=== PATIENT | female | born 1935 | race Caucasian/White ===

== ENCOUNTER → 2016-12-20 | Outpatient (CLI) | payer OTHER, MEDICARE ==
[~2016-12-20] MED LIST: ADULT LOW DOSE81 MG PO; ALDACTONE25 MG PO; ATORVASTATIN CA40 MG PO; AUGMENTIN 875875 MG PO; CARVEDILOL12.5 MG PO; CENTRUM SILVER1 EAC4 PO; CLARITIN10 MG PO; COZAAR 50 MG TA50 M2 PO; FISH OIL 1,0001 EACH PO; FLONASE 0.05%50 MCG NASAL; GLIMEPIRIDE2 MG PO; LANOXIN 0.120.125 M1 PO; LANTUSSOLASTAR SUBQ; LASIX 40 MG TAB40 M2 PO; LEVOTHYROXINE 0.1 MG PO; METFORMIN HCL500 MG PO; NOVOLOG100 UNIT/1 SUBQ; OSTEO BI-FLEX1 EAC1 PO; PAXIL20 MG PO; PLAVIX 75 MG TA75 MG PO; POTASSIUM PO; PRAVACHOL40 MG PO; PROBIOTIC1 EAC1 PO; URSODIOL300 MG PO; VANCOMYCIN100 MG/M1 PO; VENTOLIN HFA 1818 GM INH; VITAMIN D1000 UNI1 PO; VITAMINC500 PO; XARELTO15 MG PO
== END ==
LOC: CAT 12:48
DX: R31.9 Hematuria, unspecified (principal)

== ENCOUNTER 2017-01-31 12:00 | Inpatient (IN) | payer OTHER, MEDICARE ==
--- NOTE | ~2017-01-31 | EKG ---
[place] [address] To [facility] [place] [address] ELECTROCARDIOGRAM REPORT Name: SUNSHINE MCCOY JO Room #: 304-P ADM IN M.R.#: [id number] Admission: 01/31/17 Attend Phys: Rena Toscano Discharge: Date of : 31 Report #: [id number] THIS REPORT FOR: //name// [facility] Test Date: 2017-02-01 Test Time: 16:32:07 Pat Name: SUNSHINE MCCOY Department: Room: 304 P Gender: F Educational Diagnostician: Rena STERN : 1935 Requested By: Yelena Gama Order Number: [id number] MD: Denis Brown Measurements Intervals [place] Rate: 71 P: 76 [place]: 179 QRS: 5 QRSD: 92 T: 77 QT: 412 QTc: 448 Interpretive Statements Sinus rhythm Poor R wave progression Compared to ECG 06/12/2016 07:29:15 Atrial fibrillation no longer present Electronically Signed On 02-03-2017 13:17:15 CDT by Denis Brown [email or web address] <ELECTRONICALLY SIGNED> By: Denis Brown MD, [facility] 02/03/17 1317 163 163 Denis Brown MD, [facility] /EPI
--- NOTE | ~2017-01-31 | S ---
[facility] [place] [address] SURGICAL PATH RPT PROCEDURE Name: KATHLEEN MCCOY Room #: 304-P DIS IN M.R.#: [id number] Admission: 01/31/17 Date of : 31 Discharge: 02/04/17 Report #: [id number] Path Case #: [id number] PATHOLOGY REPORT COLLECTION DATE: 02/03/2017 RECEIVED DATE: 02/04/2017 SUBMITTING PHYS: Dr. Chris Spears OTHER PHYS: Dr. Bin Wilson SPECIMEN(S) RECEIVED: A.Polyp at proximal ascending colon B.Polyp at distal transverse colon C.Polyp at splenic flexure colon x2 D.Polyp at proximal descending colon E.Polyp at mid descending colon F.Polyp at proximal sigmoid colon G.Polyp at mid sigmoid * * * * * * * * * * * * FINAL DIAGNOSIS: A. Polyp, proximal ascending colon polyp, endoscopic biopsy: - Tubular adenoma. - Negative for high grade dysplasia. B. Polyp, distal transverse colon, endoscopic biopsy: - Tubular adenoma. - Negative for high grade dysplasia. C. Polyp, splenic flexure, endoscopic biopsy: - Tubular adenoma. - Negative for high grade dysplasia. D. Polyp, proximal descending colon, endoscopic biopsy: - Tubular adenoma. - Negative for high grade dysplasia. E. Polyp, mid descending colon, endoscopic biopsy: - TUBULOVILLOUS ADENOMA WITH FOCI OF HIGH GRADE DYSPLASIA. - No definite invasion identified. F. Polyp, at proximal sigmoid, endoscopic biopsy: - Tubular adenoma. - Negative for high grade dysplasia. G. Polyp, at mid sigmoid, endoscopic biopsy: - Tubular adenoma. - Negative for high grade dysplasia. COMMENT: Part E only is co-reviewed by Dr. Carlos Lopez who concurs with my diagnosis. (IUV:db; 02/05/2017) [address] [address] SURGICAL PATH RPT PROCEDURE Name: KAMRYN MCCOYTY JO Room #: 304-P [facility] IN M.R.#: [id number] Admission: 01/31/17 Date of : 31 Discharge: 02/04/17 Report #: [id number] Path Case #: [id number] PATHOLOGIST: Bev Gomez M.D. REPORT ELECTRONICALLY SIGNED BY: Bev Gomez M.D. DATE/TIME: 02/05/2017 14:57 * * * * * * * * * * * * GROSS PATHOLOGY: A. Received in formalin labeled "Kathleen Mccoy, proximal ascending colon polyp," is a segment of rowell soft tissue measuring 0.6 cm in maximum dimension. The specimen is submitted entirely in cassette A1. B. Received in formalin labeled "Kathleen Mccoy, polyp distal transverse colon," is a segment of rowell soft tissue measuring 0.6 cm in maximum dimension. The specimen is submitted entirely in cassette B1. C. Received in formalin labeled "Kathleen Mccoy, polyp splenic flexure colon," are four segments of rowell soft tissue measuring 0.8 x 0.8 x 0.2 cm in aggregate dimensions and ranging from 0.4 to 0.7 cm in maximum dimension. The specimen is submitted entirely in cassette C1. D. Received in formalin labeled "Kathleen Mccoy, proximal descending colon," are three segments of rowell soft tissue measuring 1.0 x 0.9 x 0.3 cm in aggregate dimensions and ranging from 0.4 to 0.7 cm in maximum dimension. The specimen is submitted entirely in cassette D1. E. Received in formalin labeled "Kathleen Mccoy, mid descending colon," are nine segments of rowell soft tissue measuring 1.9 x 1.8 x 0.4 cm in aggregate dimensions and ranging from 0.4 to 1.0 cm in maximum dimension. The specimen is submitted entirely in cassette E1 and E2. F. Received in formalin labeled "Kathleen Mccoy, polyp at proximal sigmoid," are three segments of rowell soft tissue measuring 1.2 x 0.8 x 0.3 cm in aggregate dimensions and ranging from 0.5 to 0.8 cm in maximum dimension. The specimen is submitted entirely in cassette F1. G. Received in formalin labeled "Kathleen Mccoy, polyp at mid sigmoid," is a segment of rowell soft tissue measuring 0.7 cm in maximum dimension. The specimen is submitted entirely in cassette G1. (CAA; 02/04/2017) CLINICAL HISTORY: Anemia INITIAL CPT CODE(S): A; 17931 B; 43804 C; 22204 D; 41554 E; 55402 F; 28518 G; [address] [address] SURGICAL PATH RPT PROCEDURE Name: KATHLEEN MCCOY JO Room #: 304-P DIS IN M.R.#: [id number] Admission: 01/31/17 Date of : 31 Discharge: 02/04/17 Report #: [id number] Path Case #: [id number] Professional services performed by [facility] at [facility] [address] [place] [address] Technical services performed by [facility] at [address] [place] [address], [place] [address]. [facility] [address] [place] [address] PHONE: [phone] DIRECTOR: Noel Marsh M.D. * * * END OF REPORT * * *
--- NOTE | ~2017-01-31 | 2DMMODE ---
[facility] [address] [place] [address] 2 D/M-MODE ECHOCARDIOGRAM Name: SUNSHINE MCCOY Room #: 304-P [facility] IN M.R.#: [id number] Admission: 01/31/17 Attend Phys: Bin Marr Discharge: Date of : 31 Date of Service: 02/02/172008 Report #: [id number] THIS REPORT FOR: //name// APPROVED REPORT Study performed: 02/02/2017 13:36:01 EXAM: Comprehensive 2D, Doppler, and color-flow Echocardiogram Patient Location: Bedside Room #: 304 Status: on-call Other Information Study Quality: Good Indications Diabetes Atrial Fibrillation Cardiomyopathy Hypertension/HDD 2D Dimensions LVEF(%): 24.40 (>50%) IVSd: 11.08 (7-11mm) LVOT Diam: 18.00 (18-24mm) LVDd: 43.26 mm PWd: 11.11 (7-11mm) Ascending Ao: 30.87 (22-36mm) LVDs: 38.45 (25-40mm) Aortic Root: 31.76 mm Kaur's LVEF: 24.40 % Volumes Left Atrial Volume (Systole) Single Plane 4CH: 69.99 mL Single Plane 2CH: 66.24 mL LA ESV Index: 43.00 mL/m2 Aortic Valve AoV Peak Lobito.: 1.40 m/s AO Peak Gr.: 8.89 mmHg LVOT Max P.76 mmHg LVOT Max V: 0.83 m/s ROMEO Vmax: 1.48 cm2 Mitral Valve MV Peak Gr.: 37.92 mmHg MV Mean Gr.: 14.73 mmHg E/A Ratio: 1.2 MV Decel. Time: 541.66 ms [facility] [place] [place] [address] 2 D/M-MODE ECHOCARDIOGRAM Name: SUNSHINE MCCOY JO Room #: 304-P [facility] IN .R.#: [id number] Admission: 01/31/17 Attend Phys: Bin Marr Discharge: Date of : 31 Date of Service: 02/02/172008 Report #: [id number] E Max Lobito.: 2.16 m/s MV A Lobito.: 1.73 m/s MV Max Lobito.: 3.06 m/s MV Mean Lobito.: 1.79 m/s MV VTI: 1087.59 mm MV PHT: 157.08 ms MVA (PHT): 1.27 cm2 IVRT: 96.89 ms Pulmonary Valve PV Peak Lobito.: 1.00 m/s PV Peak Gr.: 4.07 mmHg NV End Vmax: 1.28 m/s Tricuspid Valve TR Peak Lobito.: 4.48 m/s RAP Estimate: 10.00 mmHg TR Peak Gr.: 80.39 mmHg PA Pressure: 90.00 mmHg Left Ventricle The left ventricle is normal size. Mid-distal septum and apex are hypokinetic. Borderline concentric left ventricular hypertrophy. Left ventricular systolic function is decreased. mid distal septum ant apex hypokinetic 40 45% Right Ventricle The right ventricle is normal size. The right ventricular systolic function is normal. Atria Left atrium is moderately dilated. Right atrium is mildly dilated. Aortic Valve The Aortic valve is sclerotic. No aortic regurgitation is present. There is no aortic valvular stenosis. Mitral Valve There is mitral annular calcification. Moderate mitral regurgitation. Moderate to severe mitral stenosis. Tricuspid Valve The tricuspid valve is normal in structure. There is no tricuspid valve regurgitation noted. Pulmonic Valve The pulmonary valve is normal in structure. Mild pulmonic [place] [id number] 2 D/M-MODE ECHOCARDIOGRAM Name: SUNSHINE MCCOY JO Room #: 304-P [facility] IN M.R.#: [id number] Admission: 01/31/17 Attend Phys: Bin Marr Discharge: Date of : 31 Date of Service: 02/02/172008 Report #: [id number] regurgitation. Great Vessels The aortic root is normal in size. IVC is dilated and collapses <50% with inspiration. Pericardium There is no pericardial effusion. <Conclusion> 40 45% The right ventricle is normal size. The right ventricular systolic function is normal. Left atrium is moderately dilated. Right atrium is mildly dilated. The Aortic valve is sclerotic. There is no aortic valvular stenosis. Moderate mitral regurgitation. There is no pericardial effusion. There is no tricuspid valve regurgitation noted. The left ventricle is normal size. Left ventricular systolic function is decreased. mid distal septum ant apex hypokinetic <ELECTRONICALLY SIGNED> By: Alton Bright MD, FACC 02/02/172008 08 08 Alton Bright MD, FACC /INF
--- NOTE | ~2017-01-31 | S ---
[facility] [place] [address] SURGICAL PATH RPT PROCEDURE Name: KATHLEEN MCCOY JO Room #: 304-P DIS IN M.R.#: [id number] Admission: 01/31/17 Date of : 31 Discharge: 02/04/17 Report #: [id number] Path Case #: [id number] PATHOLOGY REPORT COLLECTION DATE: 02/02/2017 RECEIVED DATE: 02/04/2017 SUBMITTING PHYS: Dr. Chris Spears OTHER PHYS: Dr. Bin Wilson SPECIMEN(S) RECEIVED: A.Biopsy of gastritis * * * * * * * * * * * * FINAL DIAGNOSIS: Gastric mucosa, gastritis, endoscopic biopsy: - Moderate reactive gastropathy with focal intestinal metaplasia. - Negative for atrophy or dysplasia. - Negative for Helicobacter pylori. (IUV:kp; 02/05/2017) COMMENT: Well-controlled Helicobacter pylori immunohistochemical stain performed on block A1 - Negative. PATHOLOGIST: Bev Gomez M.D. REPORT ELECTRONICALLY SIGNED BY: Bev Gomez M.D. DATE/TIME: 02/05/2017 14:55 * * * * * * * * * * * * GROSS PATHOLOGY: Received in formalin labeled "Kathleen Mccoy, biopsy of gastritis," are four segments of rowell soft tissue measuring 1.0 x 0.9 x 0.2 cm in aggregate dimensions and ranging from 0.5 to 0.6 cm in maximum dimension. The specimen is submitted entirely in cassette A1. (CAA; 02/04/2017) CLINICAL HISTORY: Pre-op diagnosis: Dysphagia, dark stools Post-op diagnosis: Gastritis INITIAL CPT CODE(S): A; 47498, 69774 Professional services performed by [facility] at [facility] [address], [place] [address] [facility] [address] [place] [address] SURGICAL PATH RPT PROCEDURE Name: KATHLEEN MCCOY Room #: 304-P DIS IN M.R.#: [id number] Admission: 01/31/17 Date of : 31 Discharge: 02/04/17 Report #: [id number] Path Case #: [id number] Technical services performed by [facility] at [address] [place] [address], [facility] [[email or web address]] [address] [place] [address]. [facility] [address] [place] [address] PHONE: [phone] DIRECTOR: Noel Marsh M.D. * * * END OF REPORT * * *
[2017-01-31] MEDS ORDERED: OMEPRAZOLE 20 M20 M1 PO (12:17)
[2017-01-31] MEDS ORDERED: PRAVACHOL40 MG PO (12:20)
[2017-01-31] MEDS ORDERED: NOVOLOG100 UNIT/1 SUBQ (12:24)
[2017-01-31] MEDS ORDERED: PROBIOTIC1 EAC1 PO (12:25)
[2017-01-31 15:30] VITALS: BP 122/56
[2017-01-31 20:00] VITALS: BP 115/53
[2017-01-31 20:09] LABS: HEMATOCRIT 22.4 % (37.0-47.0); HEMOGLOBIN 7.4 gm/dL (12.0-15.0); MCH 31.4 pg (26.0-34.0); MCV 95.1 fL (80.0-100.0); PLATELET COUNT 249 thou/uL (150-400); RBC 2.36 mil/uL (4.20-5.00); WBC 8.5 thou/uL (4.0-11.0)
[2017-01-31 20:11] LABS: MANUAL DIFF YES
[2017-01-31 20:28] LABS: ALBUMIN 2.9 g/dL (3.4-5.0); CALCIUM 8.5 mg/dL (8.5-10.1); CREATININE 1.3 mg/dL (0.6-1.0); POTASSIUM 3.8 mmol/L (3.5-5.1); TOTAL BILIRUBIN 0.8 mg/dL (<0.1-1.0); TOTAL PROTEIN 6.5 g/dL (6.4-8.2)
[2017-01-31 20:51] LABS: ABSOLUTE NEUTROPHILS 6.9 thou/uL (1.4-8.2); TOTAL CELL COUNT 100
[2017-01-31 20:52] LABS: ANISOCYTOSIS 1+
[2017-01-31] MEDS ORDERED: FLONASE 0.05%50 MCG NASAL (22:58)
[2017-01-31] MEDS ORDERED: CLARITIN10 MG PO (22:59)
[2017-02-01] VITALS: BP 102/40
[2017-02-01 04:00] VITALS: BP 124/50
[2017-02-01 09:00] VITALS: BP 117/69
[2017-02-01 15:29] LABS: URINE BILIRUBIN NEGATIVE (Negative); URINE BLOOD NEGATIVE (Negative); URINE COLOR YELLOW; URINE GLUCOSE-RANDOM* NEGATIVE (Negative); URINE KETONES NEGATIVE (Negative); URINE LEUKOCYTES-REFLEX 1+ (Negative); URINE PROTEIN (DIPSTICK) NEGATIVE (Negative); URINE SPECIFIC GRAVITY <= 1.005 (1.003-1.035); URINE UROBILINOGEN 0.2 E.U./dl (0.2-1.0)
[2017-02-01 15:39] LABS: SQUAMOUS 0-3 Few /LPF (0-3)
[2017-02-01 15:40] LABS: CASTS None Seen /LPF (None Seen); CRYSTALS None Seen /LPF (None Seen); URINE RBC None Seen /HPF (0-2); URINE WBC-REFLEX 0-5 Rare /HPF (0-5)
[2017-02-01 16:00] VITALS: BP 114/55
[2017-02-01 20:00] VITALS: BP 136/63
[2017-02-02] VITALS (7 sets, daily range): BP systolic 84–114; BP diastolic 42–57
[2017-02-02 11:44] LABS: HEMATOCRIT 20.8 % (37.0-47.0); HEMOGLOBIN 6.8 gm/dL (12.0-15.0); MCH 31.4 pg (26.0-34.0); MCHC 32.9 g/dL (28.0-37.0); MCV 95.4 fL (80.0-100.0); RBC 2.18 mil/uL (4.20-5.00); RDW 20.5 % (10.5-14.5); WBC 7.7 thou/uL (4.0-11.0)
[2017-02-02 11:48] LABS: CALCIUM 8.3 mg/dL (8.5-10.1); CREATININE 1.3 mg/dL (0.6-1.0); POTASSIUM 3.8 mmol/L (3.5-5.1)
[2017-02-03 08:00] VITALS: BP 131/67
[2017-02-03 10:05] LABS: HEMATOCRIT 31.1 % (37.0-47.0)
[2017-02-03 10:11] LABS: HEMOGLOBIN 10.1 gm/dL (12.0-15.0)
[2017-02-03 10:30] VITALS: BP 141/67
[2017-02-03 16:00] VITALS: BP 114/66
[2017-02-03 17:07] LABS: URINE BILIRUBIN NEGATIVE (Negative); URINE BLOOD 3+ (Negative); URINE COLOR YELLOW; URINE GLUCOSE-RANDOM* NEGATIVE (Negative); URINE KETONES NEGATIVE (Negative); URINE LEUKOCYTES-REFLEX 1+ (Negative); URINE PROTEIN (DIPSTICK) TRACE (Negative); URINE SPECIFIC GRAVITY 1.025 (1.003-1.035); URINE UROBILINOGEN 0.2 E.U./dl (0.2-1.0)
[2017-02-03 17:15] LABS: CASTS None Seen /LPF (None Seen); SQUAMOUS 4-10 Moderate /LPF (0-3)
[2017-02-03 17:18] LABS: URINE WBC-REFLEX 0-5 Rare /HPF (0-5)
[2017-02-03 20:30] VITALS: BP 110/58
[2017-02-04 03:30] VITALS: BP 91/57
[2017-02-04 06:32] LABS: HEMATOCRIT 28.3 % (37.0-47.0); HEMOGLOBIN 9.5 gm/dL (12.0-15.0); MCH 30.4 pg (26.0-34.0); MCHC 33.4 g/dL (28.0-37.0); MCV 90.9 fL (80.0-100.0); RBC 3.12 mil/uL (4.20-5.00); RDW 20.4 % (10.5-14.5); WBC 10.4 thou/uL (4.0-11.0)
[2017-02-04 07:28] VITALS: BP 93/53
[2017-02-04] MEDS ORDERED: PACERONE 200 M200 M1 PO (12:34)
[2017-02-04 13:02] VITALS: BP 93/53
[2017-02-04 13:14] VITALS: BP 93/53
== END 2017-02-04 13:58 | disposition home or self-care (01) | DRG 378 ==
LOC: 3N 12:00
PROVIDERS: Internal Medicine; Internal Medicine Geriatric Medicine; Specialist
DX: K92.2 Gastrointestinal hemorrhage, unspecified (principal); E44.1 Mild protein-calorie malnutrition; I10 Essential (primary) hypertension; E78.5 Hyperlipidemia, unspecified; F32.9 Major depressive disorder, single episode, unspecified; E11.9 Type 2 diabetes mellitus without complications; B02.9 Zoster without complications; D64.9 Anemia, unspecified; L50.9 Urticaria, unspecified; I25.10 Atherosclerotic heart disease of native coronary artery without angina pectoris; E03.9 Hypothyroidism, unspecified; I27.2 Other secondary pulmonary hypertension; M19.90 Unspecified osteoarthritis, unspecified site; L29.9 Pruritus, unspecified; I25.5 Ischemic cardiomyopathy; I05.0 Rheumatic mitral stenosis; I48.0 Paroxysmal atrial fibrillation; K63.5 Polyp of colon; Z88.6 Allergy status to analgesic agent; Z88.2 Allergy status to sulfonamides; Z91.041 Radiographic dye allergy status; Z90.710 Acquired absence of both cervix and uterus; Z98.62 Peripheral vascular angioplasty status; I25.2 Old myocardial infarction; Z90.49 Acquired absence of other specified parts of digestive tract; Z79.899 Other long term (current) drug therapy; K74.3 Primary biliary cirrhosis
CPT/HCPCS: 10096; 62110; 62900; 70005

== ENCOUNTER 2017-06-18 18:46 | Emergency (ER) | payer OTHER, MEDICARE ==
[~2017-06-18] VITALS: Ht 160 cm; Wt 77.1 kg
[~2017-06-18 18:46] MED LIST changes: +OMEPRAZOLE 20 M20 M1 PO; +PACERONE 200 M200 M1 PO
[2017-06-18] MEDS ORDERED: OMEPRAZOLE 20 M20 M1 PO (19:49)
== END 2017-06-18 21:18 | disposition home or self-care (01) ==
LOC: ER 18:46
DX: S01.01XA Laceration without foreign body of scalp, initial encounter (principal); M54.5 Low back pain; I10 Essential (primary) hypertension; E78.5 Hyperlipidemia, unspecified; F32.9 Major depressive disorder, single episode, unspecified; E11.9 Type 2 diabetes mellitus without complications; I48.91 Unspecified atrial fibrillation; Z91.041 Radiographic dye allergy status; Z90.710 Acquired absence of both cervix and uterus; Z88.5 Allergy status to narcotic agent; Z88.2 Allergy status to sulfonamides; W01.198A Fall on same level from slipping, tripping and stumbling with subsequent striking against other object, initial encounter; Y93.89 Activity, other specified; Y92.89 Other specified places as the place of occurrence of the external cause; Y99.8 Other external cause status; Z79.4 Long term (current) use of insulin

== ENCOUNTER → 2017-07-31 | Outpatient (CLI) | payer OTHER, MEDICARE ==
[~2017-07-31] MED LIST changes: +ACETAMINOPHEN-1 EAC1 PO; +COZAAR 50 MG TA50 M1 PO; +DEMADEX20 MG PO; +GABAPENTIN 100100 MG PO; +KLOR-CON20 ME1 PO; +TORSEMIDE20 MG PO
== END ==
LOC: CAT 15:03
DX: M48.56XA Collapsed vertebra, not elsewhere classified, lumbar region, initial encounter for fracture (principal); M48.061 Spinal stenosis, lumbar region without neurogenic claudication; M19.071 Primary osteoarthritis, right ankle and foot; M10.071 Idiopathic gout, right ankle and foot; M25.78 Osteophyte, vertebrae; I10 Essential (primary) hypertension; I48.91 Unspecified atrial fibrillation; I11.0 Hypertensive heart disease with heart failure; I50.32 Chronic diastolic (congestive) heart failure; E11.9 Type 2 diabetes mellitus without complications; E11.65 Type 2 diabetes mellitus with hyperglycemia; N17.9 Acute kidney failure, unspecified; I25.10 Atherosclerotic heart disease of native coronary artery without angina pectoris; E03.9 Hypothyroidism, unspecified; J44.9 Chronic obstructive pulmonary disease, unspecified; K57.90 Diverticulosis of intestine, part unspecified, without perforation or abscess without bleeding; I25.5 Ischemic cardiomyopathy

== ENCOUNTER → 2017-08-15 | Outpatient (CLI) | payer OTHER, MEDICARE | LOC: RAD 13:06 | DX: J98.11 Atelectasis (principal) ==

== ENCOUNTER 2017-09-24 12:40 | Inpatient (IN) | payer OTHER, MEDICARE ==
[~2017-09-24] VITALS: Ht 160 cm; Wt 76.2 kg
--- NOTE | ~2017-09-24 | H ---
[facility] [place] [address] HISTORY AND PHYSICAL Name: SUNSHINE MCCOY Room #: 437-P ADM IN M.R.#: [id number] Admission: 09/24/17 Attend Phys: Rena Toscano Discharge: Date of : 33 Report #: [id number] THIS REPORT FOR: //name// CC: Bin Wilson DATE OF SERVICE: 09/24/2017 CHIEF COMPLAINT: Back pain. HISTORY OF PRESENT ILLNESS: The patient is an 82-year-old female admitted from home with back pain. She said over the last several weeks, she has had pain in the middle of the back, which is gradually intensified. It is very difficult for her to get in and out of bed. She denies any recent fall or injury. CT in July confirmed an L1 fracture. An MRI yesterday suggested there has been compression with loss of vertebral height. She is admitted for pain control and consideration of intervention. PAST MEDICAL HISTORY: Coronary artery disease with remote history of stent, history of subarachnoid hemorrhage, diabetes type 2, hypertension, dyslipidemia, primary biliary cirrhosis, hypothyroidism, diverticulosis, history of C. diff colitis in 2016, COPD, and depression. PAST SURGICAL HISTORY: Cholecystectomy. FAMILY HISTORY: Noncontributory. SOCIAL HISTORY: She is and lives with her . No chronic alcohol or tobacco use. ALLERGIES: IV CONTRAST, MORPHINE, she said it caused confusion. MEDICATIONS: Advil, Paxil 20 mg, Colace, Levoxyl 100 mcg, amiodarone 100 mg, Zyrtec, NovoLog 20 units with meals, Lasix 20 mg, Symbicort 2 puffs twice a day, omeprazole 20 mg, Flonase nasal spray. REVIEW OF SYSTEMS: Other than the above denies headache, chest pain, shortness of breath, abdominal pain, nausea, vomiting, constipation, dysuria, syncope. OBJECTIVE: VITAL SIGNS: Per the nursing note. GENERAL: She is awake and alert, sitting on the edge of the bed, appears uncomfortable. HEAD AND NECK: Unremarkable. LUNGS: Clear. HEART: Regular. ABDOMEN: Soft, normoactive bowel sounds. [facility] [address] [place] [address] HISTORY AND PHYSICAL Name: SUNSHINE MCCOY JO Room #: 437-P [facility] IN M.R.#: [id number] Admission: 09/24/17 Attend Phys: Rena Toscaon Discharge: Date of : 33 Report #: [id number] EXTREMITIES: No edema. NEUROLOGIC: She has palpable midline spinal tenderness. Global strength is intact. She was able to stand and walk from the bedside commode with help. ASSESSMENT: 1. L1 vertebral compression fracture. 2. Uncontrolled low back pain. 3. Lumbar spinal stenosis from L3-L5. 4. Diabetes type 2. 5. Coronary artery disease. PLAN: She has failed outpatient treatment has been unable to manage at home due to constant pain. Advil has been ineffective and tramadol caused side effects. She said she has had an INTOLERANCE TO MORPHINE in the past ordered Tylenol with codeine for now and a back brace with physical therapy. May need to consider vertebroplasty. <ELECTRONICALLY SIGNED> By: Melvin Floyd MD 09/25/17 1208 1714 1740 Melvin Floyd MD /nt
--- NOTE | ~2017-09-24 | D ---
[facility] [place] [address] DISCHARGE SUMMARY Name: SUNSHINE MCCOY JO Room #: 437-P [facility] IN M.R.#: [id number] Admission: 09/24/17 Attend Phys: Rena Toscano Discharge: 09/28/17 Date of : 31 Report #: [id number] THIS REPORT FOR: //name// CC: Bin Wilson DATE OF SERVICE: 09/28/2017 FINAL DIAGNOSIS: Acute L1 vertebral compression fracture. PROCEDURES: Vertebroplasty. HOSPITAL COURSE: The patient was admitted with intractable back pain. Previous MRI was obtained, which revealed an acute L1 vertebral compression fracture. Back brace and therapy were ordered, and she was started on Tylenol with codeine for pain as she did not tolerate other narcotics in the past. Interventional Radiology was consulted. Dr. Copeland felt she was amenable to vertebroplasty, and therefore, she underwent the procedure. Her pain was much improved following this. She was participating well with physical therapy, and she was mobile enough to go home and not needing inpatient rehabilitation at this point. PHYSICAL EXAMINATION: GENERAL: On the day of discharge, she was awake and alert with stable vital signs. Reviewed electronically. I spoke to the patient and her at the bedside about the plan. LUNGS: Clear. HEART: Regular. ABDOMEN: Soft, normoactive bowel sounds. EXTREMITIES: No edema. DISPOSITION: To be discharged home. Resume all medications. Diabetic diet, activity as tolerated. She will have a back brace to use when she is out of bed, Tylenol No. 3 for pain. Follow up with Dr. Wilson in 2 weeks. <ELECTRONICALLY SIGNED> By: Melvin Floyd MD 10/01/17 1521 0820 0909 Melvin Floyd MD /nt
--- NOTE | ~2017-09-24 | HC ---
[facility] [place] [address] CONSULTATION Name: SUNSHINE MCCOY JO Room #: 437-P [facility] IN M.R.#: [id number] Admission: 09/24/17 Attend Phys: Rena Toscano Discharge: 09/28/17 Date of : 33 Report #: [id number] THIS REPORT FOR: //name// CC: Bin Wilson DATE OF SERVICE: 09/26/2017 HISTORY OF PRESENT ILLNESS: The patient is an 82-year-old white female with history of back pain. She apparently had a fall back in May and the pain gradually got worse. Initial x-rays were negative, but a followup CT in July showed an L1 compression fracture. Symptoms have gradually worsened and an MRI was obtained, which showed decreased vertebral height. She has developed uncontrolled low back pain. She is having difficulty getting in and out of bed. She has been sleeping in a recliner. She was admitted to [facility] and has been seen by Interventional Radiology and my understanding is she is to undergo a kyphoplasty later on today. She has in the meantime been fitted with a TLSO brace. We are seeing her in rehabilitation medicine consultation. PAST MEDICAL HISTORY: Coronary artery disease with remote history of a stent, history of subarachnoid hemorrhage, diabetes mellitus type 2, hypertension, dyslipidemia, primary biliary cirrhosis, hypothyroidism, diverticulosis, history of C. diff colitis, COPD, and depression. PAST SURGICAL HISTORY: Includes cholecystectomy. FAMILY HISTORY: Noncontributory. SOCIAL HISTORY: , lives with her . No chronic alcohol or tobacco abuse. ALLERGIES: IV CONTRAST AND MORPHINE WHICH APPARENTLY HAS CAUSED HER SOME CONFUSION. MEDICATIONS: Please see the full medication listing. REVIEW OF SYSTEMS: No current complaints of chest pain, shortness of breath, abdominal discomfort. The main complaint is the back pain. It appears the back brace may be helping a little bit. No focal extremity pain complaints. PHYSICAL EXAMINATION: GENERAL: She is a pleasant 82-year-old white female in no obvious distress. VITAL SIGNS: Last recorded temperature is 97.5, pulse 64, respirations 18, blood pressure 126/65. The patient is alert, oriented. HEENT: Appeared to be benign. NEUROLOGIC: Cranial nerves are grossly intact. Facies are symmetric. She is pleasant, alert, somewhat overweight. Functional range of motion of both upper [address] [address] CONSULTATION Name: SUNSHINE MCCOY JO Room #: 437-[facility] IN M.R.#: [id number] Admission: 09/24/17 Attend Phys: Rena Toscano Discharge: 09/28/17 Date of : 31 Report #: [id number] extremities, strength is grade 4 to 4-/5. DTRs are trace to 1. She has the TLSO brace in place. Lower extremities, no focal calf swelling. Functional range of motion, strength is grade 4/5. DTRs are trace to 1. She has had her physical therapy evaluation deferred until she received a TLSO. ASSESSMENT: 1. L1 vertebral compression fracture. 2. Uncontrolled low back pain. 3. Lumbar spinal stenosis L3 through L5. 4. Diabetes mellitus type 2. 5. Coronary artery disease. 6. Exogenous obesity. PLAN: She is to undergo the vertebroplasty later on today. We will have physical therapy involved for evaluation and will also add occupational therapy to see her after the vertebroplasty. We will need to see how she does in therapies and we will be glad to follow along regarding her rehab therapy needs. is hoping that she can return directly home with some home health care. We will need to see how she does post the vertebroplasty. Rehab beds are currently type. We will be glad to follow along with you regarding her rehab therapy needs. <ELECTRONICALLY SIGNED> By: Melvin Kwon MD 10/22/17 1030 1213 0502 Melvin Kwon MD /nt
[~2017-09-24 12:40] MED LIST changes: -ACETAMINOPHEN-1 EAC1 PO; -DEMADEX20 MG PO; -GABAPENTIN 100100 MG PO; -KLOR-CON20 ME1 PO; -TORSEMIDE20 MG PO
[2017-09-24 17:00] VITALS: BP 142/74
[2017-09-24] MEDS ORDERED: LASIX 40 MG TAB40 M2 PO (18:21)
[2017-09-24 18:22] LABS: HEMATOCRIT 36.3 % (37.0-47.0); HEMOGLOBIN 11.9 gm/dL (12.0-15.0); MCH 30.8 pg (26.0-34.0); MCHC 32.7 g/dL (28.0-37.0); MCV 94.1 fL (80.0-100.0); RBC 3.85 mil/uL (4.20-5.00); RDW 19.8 % (10.5-14.5); WBC 11.8 thou/uL (4.0-11.0)
[2017-09-24 18:36] LABS: CALCIUM 9.4 mg/dL (8.5-10.1); CREATININE 1.1 mg/dL (0.6-1.0); POTASSIUM 3.9 mmol/L (3.5-5.1); TOTAL BILIRUBIN 0.6 mg/dL (<0.1-1.0); TOTAL PROTEIN 6.8 g/dL (6.4-8.2)
[2017-09-24 18:37] LABS: PROTIME 10.3 Seconds (9.3-11.4)
[2017-09-25 04:00] VITALS: BP 120/55
[2017-09-25 09:15] VITALS: BP 111/52
[2017-09-25 16:35] VITALS: BP 117/67
[2017-09-25 19:32] VITALS: BP 134/71
[2017-09-26] VITALS (12 sets, daily range): BP systolic 126–153; BP diastolic 65–96
[2017-09-27 03:29] VITALS: BP 119/65
[2017-09-27 08:00] VITALS: BP 127/67
[2017-09-27 16:00] VITALS: BP 111/47
[2017-09-27 19:48] VITALS: BP 129/69
[2017-09-28 03:46] VITALS: BP 121/57
[2017-09-28] MEDS ORDERED: ACETAMINOPHEN-1 EAC1 PO (08:17)
[2017-09-28] MEDS ORDERED: PACERONE 200 M200 M1 PO (08:17)
[2017-09-28 08:46] VITALS: BP 113/63
[2017-09-28 09:06] VITALS: BP 113/63
[2017-09-28 09:53] VITALS: BP 113/63
== END 2017-09-28 09:54 | disposition home or self-care (01) | DRG 516 ==
LOC: MRI 12:40 → 4S 15:39
PROVIDERS: Internal Medicine Geriatric Medicine
PROC: 0QU03JZ Supplement Lumbar Vertebra with Synthetic Substitute, Percutaneous Approach (ICD-10-PCS; principal; 2017-09-28)
PROC: 0QS03ZZ Reposition Lumbar Vertebra, Percutaneous Approach (ICD-10-PCS; principal; 2017-09-28)
DX: M48.56XA Collapsed vertebra, not elsewhere classified, lumbar region, initial encounter for fracture (principal); E44.1 Mild protein-calorie malnutrition; I25.10 Atherosclerotic heart disease of native coronary artery without angina pectoris; E11.9 Type 2 diabetes mellitus without complications; I10 Essential (primary) hypertension; E78.5 Hyperlipidemia, unspecified; K74.60 Unspecified cirrhosis of liver; E03.9 Hypothyroidism, unspecified; M48.061 Spinal stenosis, lumbar region without neurogenic claudication; K57.90 Diverticulosis of intestine, part unspecified, without perforation or abscess without bleeding; E66.09 Other obesity due to excess calories; J44.9 Chronic obstructive pulmonary disease, unspecified; F32.9 Major depressive disorder, single episode, unspecified; Z90.49 Acquired absence of other specified parts of digestive tract; Z88.6 Allergy status to analgesic agent; Z68.29 Body mass index [BMI] 29.0-29.9, adult; Z79.899 Other long term (current) drug therapy; Z88.2 Allergy status to sulfonamides; Z95.5 Presence of coronary angioplasty implant and graft; Z88.8 Allergy status to other drugs, medicaments and biological substances; Z91.041 Radiographic dye allergy status; Z90.710 Acquired absence of both cervix and uterus
CPT/HCPCS: 10102

== ENCOUNTER 2018-05-07 10:57 | Inpatient (IN) | payer OTHER, MEDICARE ==
[~2018-05-07] VITALS: Ht 160 cm; Wt 76.9 kg
--- NOTE | ~2018-05-07 | EKG ---
[place] [address] [facility] [place] [address] ELECTROCARDIOGRAM REPORT Name: SUNSHINE MCCOY JO Room #: 454-P ADM IN M.R.#: [id number] Admission: 05/07/18 Attend Phys: Rena Toscano Discharge: Date of : 31 Report #: [id number] THIS REPORT FOR: //name// [facility] ED Test Date: 2018-05-07 Test Time: 11:24:10 Pat Name: SUNSHINE MCCOY Department: Room: [facility] Gender: F [employer]: [place] : 1935 Requested By: David Farley Order Number: [id number] MD: Denis Brown Measurements Intervals [place] Rate: 70 P: 69 [place]: 190 QRS: -2 QRSD: 101 T: 67 QT: 470 QTc: 508 Interpretive Statements Sinus rhythm Probable anteroseptal infarct, old Prolonged QT interval Compared to ECG 02/01/2017 16:32:07 Prolonged QT interval now present Electronically Signed On 05-07-2018 17:27:17 CDT by Denis Brown [email or web address] <ELECTRONICALLY SIGNED> By: Denis Brown MD, [facility] 05/07/18 1727 1124 1124 Denis Brown MD, [facility] /EPI
--- NOTE | ~2018-05-07 | D ---
[facility] [place] [address] DISCHARGE SUMMARY Name: SUNSHINE MCCOY Room #: 454-P [facility] IN M.R.#: [id number] Admission: 05/07/18 Attend Phys: Rena Toscano Discharge: 05/09/18 Date of : 31 Report #: [id number] THIS REPORT FOR: //name// CC: Bin Bright DATE OF SERVICE: 05/09/2018 FINAL DIAGNOSES: 1. . Erlid-ud-tdtfljq diastolic congestive heart failure. 2. Diabetes type 2. HOSPITAL COURSE: The patient was admitted with shortness of breath and x-ray and lab work were consistent with congestive heart failure. She received IV diuretics and other home medication. Dr. Bright saw her in consultation who knows her well. She responded to usual treatment. Oxygen was weaned off and she had no other interval complications. She received education from nursing staff along with Cardiology and myself regarding management of her heart failure as an outpatient treatment. PHYSICAL EXAMINATION: On the day of discharge: GENERAL: She was awake and alert. VITAL SIGNS: Stable. LUNGS: Clear. HEART: Regular. ABDOMEN: Soft, normoactive bowel sounds. EXTREMITIES: No edema. DISPOSITION: She will be discharged home with home health. Diabetic, low-sodium diet. Daily weights. Activity as tolerated. Follow up with Dr. Bright in [address] Wilson in 2 weeks. She will resume home medications with the exception of torsemide 40 mg a day and adding potassium 20 mEq a day and losartan will now be 50 mg a day. <ELECTRONICALLY SIGNED> By: Melvin Floyd MD 05/13/18 1057 1205 1250 Melvin Floyd MD /nt
--- NOTE | ~2018-05-07 | H ---
[facility] [place] [address] HISTORY AND PHYSICAL Name: SUNSHINE MCCOY Room #: 454-P ADM IN M.R.#: [id number] Admission: 05/07/18 Attend Phys: Rena Toscano Discharge: Date of : 31 Report #: [id number] THIS REPORT FOR: //name// CC: Bin Dagn Deangelo DATE OF SERVICE: 05/07/2018 CHIEF COMPLAINT: Shortness of breath. HISTORY OF PRESENT ILLNESS: The patient is an 83-year-old female who came to the Emergency Room with shortness of breath. She said over the last 1-2 weeks, she has had progressive symptoms of difficulty breathing, especially at night. Her says she has not been sleeping well and has had to get up many times through the night. The patient says that she has difficulty lying flat and had to spend the last several nights sleeping upright in her recliner. She denied any chest pain, productive cough, fever or chills. She has had a little bit of lower extremity edema. Recently, she underwent an echocardiogram and was started on Demadex in place of Lasix; however, her respiratory symptoms have progressed. PAST MEDICAL HISTORY: Diabetes type 2, hypertension. She had a history of falls, remote history of paroxysmal AFib in 2016. She has had herpes zoster, coronary artery disease with previous ELECTRIC POWER LINE EXAMINER and stent to the LAD. She had a fall with subarachnoid hemorrhage in 2005, chronic diastolic heart failure. PAST SURGICAL HISTORY: Hysterectomy, breast lumpectomies. FAMILY HISTORY: Noncontributory. SOCIAL HISTORY: She is and lives with her . No known chronic alcohol or tobacco use. ALLERGIES: CONTRAST DYE, MORPHINE, SULFA, TRAMADOL. MEDICATIONS: Gabapentin, torsemide, omeprazole, Levoxyl, Paxil, losartan, Flonase, NovoLog, amiodarone. REVIEW OF SYSTEMS: She denies headache, chest pain, abdominal pain, nausea, vomiting, diarrhea, constipation, dysuria, syncope. She does complain of some abdominal "bloating" but reports normal bowel movements. OBJECTIVE: VITAL SIGNS: Temperature 36.4, pulse 69, respirations 28, blood pressure 139/64, O2 sat 94% on 2 liters. GENERAL: She is awake and alert, oriented to her surroundings and recognizes [address] [address] HISTORY AND PHYSICAL Name: SUNSHINE MCCOY JO Room #: 454-P [facility] IN M.R.#: [id number] Admission: 05/07/18 Attend Phys: Rena Toscano Discharge: Date of : 33 Report #: [id number] nj, in no distress. HEAD AND NECK: Unremarkable. There is no JVD. LUNGS: There are some crackles in the bases. HEART: Regular. ABDOMEN: Soft, normoactive bowel sounds. EXTREMITIES: 1+ lower leg edema. NEUROLOGIC: Cranial nerves intact. Speech is fluent. Motor strength 4/5 throughout. LABORATORY REVIEW: Chest x-ray with pulmonary edema. BNP is 3400. CT abdomen was unremarkable. ASSESSMENT: 1. Qjvpw-lr-lxfvgid diastolic heart failure. 2. Hypertension. 3. Diabetes type 2. PLAN: She will be treated for congestive heart failure at this point with IV Lasix and her other home medications. I will ask Dr. Bright to see her. She also reported some subjective low-grade fever at home and a urinalysis will be obtained. <ELECTRONICALLY SIGNED> By: Melvin Floyd MD 05/08/18 1058 1334 1349 Melvin Floyd MD /nt
[~2018-05-07 10:57] MED LIST changes: +ACETAMINOPHEN-1 EAC1 PO
[2018-05-07 10:58] VITALS: BP 132/53
[2018-05-07] MEDS ORDERED: TORSEMIDE20 MG PO (11:34)
[2018-05-07] MEDS ORDERED: GABAPENTIN 100100 MG PO (11:35)
[2018-05-07 11:49] LABS: HEMATOCRIT 34.3 % (37.0-47.0); HEMOGLOBIN 11.7 gm/dL (12.0-15.0); MCH 33.5 pg (26.0-34.0); MCHC 34.1 g/dL (28.0-37.0); MCV 98.4 fL (80.0-100.0); PLATELET COUNT 286 thou/uL (150-400); RBC 3.48 mil/uL (4.20-5.00); RDW 19.7 % (10.5-14.5); WBC 11.2 thou/uL (4.0-11.0)
[2018-05-07 11:56] LABS: ANION GAP 3 mmol/L (7-16); BUN 31 mg/dL (7-18); CHLORIDE 102 mmol/L (98-107); CO2 32 mmol/L (21-32); CREATININE 1.4 mg/dL (0.6-1.0); GLUCOSE 173 mg/dL (74-106); POTASSIUM 3.6 mmol/L (3.5-5.1); SODIUM 137 mmol/L (136-145)
[2018-05-07 12:06] LABS: TROPONIN-I <0.06 ng/mL (<0.06)
[2018-05-07 12:28] LABS: ABSOLUTE NEUTROPHILS 9.5 thou/uL (1.4-8.2); ANISOCYTOSIS 1+; METAMYELOCYTES 3 %; MYELOCYTES 1 %
[2018-05-07 12:51] LABS: ALBUMIN 2.7 g/dL (3.4-5.0); DIRECT BILIRUBIN 0.2 mg/dL (<0.1-0.3); TOTAL PROTEIN 6.8 g/dL (6.4-8.2)
[2018-05-07 13:23] VITALS: BP 139/64
[2018-05-07 13:43] VITALS: BP 139/64
[2018-05-07 14:02] LABS: URINE BILIRUBIN NEGATIVE (Negative); URINE BLOOD NEGATIVE (Negative); URINE CLARITY CLEAR; URINE COLOR YELLOW; URINE GLUCOSE-RANDOM* NEGATIVE (Negative); URINE KETONES NEGATIVE (Negative); URINE LEUKOCYTES-REFLEX NEGATIVE (Negative); URINE NITRITE-REFLEX NEGATIVE (Negative); URINE PROTEIN (DIPSTICK) NEGATIVE (Negative); URINE UROBILINOGEN 0.2 E.U./dl (0.2-1.0)
[2018-05-07 14:05] VITALS: BP 130/63
[2018-05-07 20:00] VITALS: BP 107/48
[2018-05-08 04:46] LABS: HEMATOCRIT 32.3 % (37.0-47.0); HEMOGLOBIN 10.8 gm/dL (12.0-15.0); MCH 32.9 pg (26.0-34.0); MCHC 33.5 g/dL (28.0-37.0); MCV 98.1 fL (80.0-100.0); RBC 3.3 mil/uL (4.20-5.00); RDW 19.8 % (10.5-14.5); WBC 9.8 thou/uL (4.0-11.0)
[2018-05-08 05:03] LABS: CALCIUM 8.8 mg/dL (8.5-10.1); CREATININE 1.3 mg/dL (0.6-1.0); POTASSIUM 3.6 mmol/L (3.5-5.1)
[2018-05-08 08:17] VITALS: BP 110/56
[2018-05-08 16:54] VITALS: BP 107/43
[2018-05-08 19:39] VITALS: BP 106/60
[2018-05-09 05:41] LABS: CREATININE 1.6 mg/dL (0.6-1.0); POTASSIUM 4.1 mmol/L (3.5-5.1)
[2018-05-09 08:00] VITALS: BP 135/67
[2018-05-09] MEDS ORDERED: KLOR-CON20 ME1 PO (11:30)
[2018-05-09] MEDS ORDERED: DEMADEX20 MG PO (11:30)
[2018-05-09 11:56] VITALS: BP 135/67
[2018-05-09 12:06] VITALS: BP 135/67
[2018-05-09 13:12] VITALS: BP 135/67
== END 2018-05-09 13:42 | disposition home health service (06) | DRG 291 ==
LOC: ER 10:57 → EROBS 13:06 → 4W 13:06 → ENTRNSPT 05-09 13:28 → EDTRNSPTSTS 05-09 13:33 → 4W 05-09 13:42
PROVIDERS: Internal Medicine Geriatric Medicine; Nurse Practitioner
DX: I11.0 Hypertensive heart disease with heart failure (principal); J96.00 Acute respiratory failure, unspecified whether with hypoxia or hypercapnia; E44.0 Moderate protein-calorie malnutrition; I50.33 Acute on chronic diastolic (congestive) heart failure; E11.9 Type 2 diabetes mellitus without complications; F32.9 Major depressive disorder, single episode, unspecified; I48.0 Paroxysmal atrial fibrillation; I25.10 Atherosclerotic heart disease of native coronary artery without angina pectoris; I25.5 Ischemic cardiomyopathy; E78.5 Hyperlipidemia, unspecified; Z90.710 Acquired absence of both cervix and uterus; Z95.5 Presence of coronary angioplasty implant and graft; Z88.2 Allergy status to sulfonamides; Z88.8 Allergy status to other drugs, medicaments and biological substances; Z88.6 Allergy status to analgesic agent; Z91.041 Radiographic dye allergy status; Z90.49 Acquired absence of other specified parts of digestive tract; Z23 Encounter for immunization; Z79.899 Other long term (current) drug therapy; Z68.30 Body mass index [BMI] 30.0-30.9, adult
CPT/HCPCS: 10045

== ENCOUNTER 2018-11-03 11:04 | Inpatient (IN) | payer OTHER, MEDICARE ==
[2018-11-03] VITALS (10 sets, daily range): BP systolic 122–146; BP diastolic 50–70
[~2018-11-03] VITALS: Ht 157.5 cm; Wt 74.4 kg
[~2018-11-03 11:04] MED LIST changes: +DEMADEX20 MG PO; +GABAPENTIN 100100 MG PO; +KLOR-CON20 ME1 PO; +TORSEMIDE20 MG PO
[2018-11-03] MEDS ORDERED: TORSEMIDE20 MG PO (12:22)
[2018-11-03] MEDS ORDERED: CRESTOR20 MG PO (12:22)
[2018-11-03] MEDS ORDERED: ZYRTEC10 M5 PO (12:22)
[2018-11-03] MEDS ORDERED: CENTRUM SILVER1 EAC4 PO (12:23)
[2018-11-03] MEDS ORDERED: OCUVITE TABLET1 EAC1 PO (12:23)
[2018-11-03] MEDS ORDERED: MIRALAX17 GM PO (12:24)
--- NOTE | 2018-11-03 15:48 | NUR ---
PT ARRIVED FROM PROFILER AND ADMITTED TO ROOM 208. PT ACCOMPANIED BY AND DAUGHTER. RT GROIN CATH SITE C/D/I, NO HEMATOMA. PT A/O X 4. HARD OF HEARING, HAS FLOR HEARING AIDS IN. PT DENIES SOA ON RA. DENIES PAIN. PT REFUSED SCD'S, PT AND EDUCATED ON DVT PRECAUTIONS. PT AND ORIENTED TO ROOM AND UNIT, VERBALIZES UNDERSTANDING.
[2018-11-04 04:49] LABS: HEMATOCRIT 36.1 % (37.0-47.0); MCH 33.4 pg (26.0-34.0); MCHC 33.2 g/dL (28.0-37.0); MCV 100.6 fL (80.0-100.0); RBC 3.59 mil/uL (4.20-5.00); RDW 18.4 % (10.5-14.5); WBC 10.2 thou/uL (4.0-11.0)
[2018-11-04 04:55] VITALS: BP 96/68
[2018-11-04 05:06] LABS: ALBUMIN 2.9 g/dL (3.4-5.0); ANION GAP 8 mmol/L (7-16); BUN 40 mg/dL (7-18); CALCIUM 8.7 mg/dL (8.5-10.1); CHLORIDE 102 mmol/L (98-107); CO2 31 mmol/L (21-32); CREATININE 1.2 mg/dL (0.6-1.0); GLUCOSE 160 mg/dL (74-106); SGOT 32 U/L (15-37); SGPT 41 U/L (30-65); SODIUM 141 mmol/L (136-145); TOTAL BILIRUBIN 0.7 mg/dL (<0.1-1.0); TOTAL PROTEIN 6.1 g/dL (6.4-8.2); TROPONIN-I <0.06 ng/mL (<0.06)
--- NOTE | 2018-11-04 06:39 | NUR ---
PATIENTS CARES WERE ASSUMED AT SHIFT CHANGE. PATIENT WAS ASSESSED AND MEDS WERE PASSED. HOURLY ROUNDING WAS DONE AND PATIENT APPERED TO BE SLEEPING. PATIENT HAD NO REQUEST EXCEPT HELP TO CALL IN BREAKFAST. THE BED IS IN A LOW AND LOCKED POSITION. THE BED ALARM IS ON.
[2018-11-04 07:19] VITALS: BP 105/49
[2018-11-04 11:31] VITALS: BP 112/61
--- NOTE | 2018-11-04 13:56 | EKG ---
[address] [place] [address] ELECTROCARDIOGRAM REPORT Name: SUNSHINE MCCOY JO Room #: 208-P ADM IN M.R.#: [id number] ������������������ Admission: 11/04/18 ������������������ Attend Phys: Alton Bright MD, Discharge: ������������������ Date of : 33 Report #: [id number] ����������������������������������������������������������������� [id number] THIS REPORT FOR: //name// [facility] Test Date: 2018-11-03 Test Time: 11:40:30 Pat Name: SUNSHINE MCCOY Department: Room: 208 Gender: F Internet Database Specialist: Chino MESA : 1935 Requested By: Alton Bright Order Number: [id number] MD: Simone Munoz Measurements Intervals [place] Rate: 73 P: 54 AK: 197 QRS: -62 QRSD: 107 T: 68 QT: 469 QTc: 517 Interpretive Statements Sinus rhythm Markedly posterior QRS axis Compared to ECG 05/07/2018 11:24:10 Posterior QRS axis now present Myocardial infarct finding no longer present Electronically Signed On 11-04-2018 13:56:01 CDT by Simone Munoz [email or web address] ��������������������������������������������� <ELECTRONICALLY SIGNED> ���������������������������������������� By: Simone Munoz MD ��������������������������������������������� 11/04/18 1356 1140 1140 Simone Munoz MD /EPI
--- NOTE | 2018-11-04 16:50 | NUR ---
PATIENT STATES NOT FEELING SOB WITH EXERTION TODAY. HAS HAD GOOD DIURESIS TODAY. DENIES CHEST PAIN. NSR ON TELEMETRY. RIGHT GROIN SITE C/D/I. GOOD PEDAL PULSES. SLIGHT LLE EDEMA NOTED. DENIES PAIN. RESTING QUIETLY IN BED AT PRESENT. AT BEDSIDE. FALL PRECAUTIONS IN PLACE. VERY PLEASANT AND COOPERATIVE.
--- NOTE | 2018-11-04 16:57 | EKG ---
[place] [address] [facility] [place] [address] ELECTROCARDIOGRAM REPORT Name: SUNSHINE MCCOY JO Room #: 208-P ADM IN M.R.#: [id number] ������������������ Admission: 11/04/18 ������������������ Attend Phys: Alton Brgiht MD, Discharge: ������������������ Date of : 33 Report #: [id number] ����������������������������������������������������������������� [id number] THIS REPORT FOR: //name// [facility] Test Date: 2018-11-04 Test Time: 07:29:30 Pat Name: SUNSHINE MCCOY Department: Room: 208 P Gender: F Care Coordinator: JEAN : 1935 Requested By: Yelena Gama Order Number: [id number] MD: Denis Brown Measurements Intervals [place] Rate: 72 P: 55 MN: 203 QRS: -35 QRSD: 107 T: 71 QT: 480 QTc: 526 Interpretive Statements Sinus rhythm Poor R wave progression Prolonged QT interval Compared to ECG 05/07/2018 11:24:10 No significant change was found Electronically Signed On 11-04-2018 16:57:44 CDT by Denis Brown [email or web address] ��������������������������������������������� <ELECTRONICALLY SIGNED> ���������������������������������������� By: Denis Brown MD, [facility] ��������������������������������������������� 11/04/18 1657 8 8 Denis Brown MD, [facility] /EPI
[2018-11-04 17:30] VITALS: BP 131/666
[2018-11-04 19:55] VITALS: BP 126/42
[2018-11-05 00:36] VITALS: BP 105/50
--- NOTE | 2018-11-05 03:13 | NUR ---
ASSUME DPT CARE AT 1900. PT A/OX4, SPOUSE AT BEDSIDE. VITAL SIGNS STABLE, ASSESSMENT CHARTED. NO COMPLAINTS OF SOA. NO COMPLAINTS OF CHEST PAIN. PT COMPLAINED OF A HEAD ACHE, TYLENOL GIVEN WHICH SEENED TO HELP. PT'S BLOOD SUGAR AT 2100 WAS 192, 8 UNITS GIVEN PER SLIDIING SCALE. AT 0000, BLOOD SUGAR RECHECKED, AND WAS 67 AND ASYMPTOMATIC. ORANGE JUICE GIVEN. BLOOD SUGAR RECHECKED AND WAS 117. PT RESTING COMFORTABLY IN BED. RIGHT GROIN SITE SOFT. NO HEMATOMA. MINIMAL DRAINANGE NOTED AND TRACED AT START OF SHIFT. NO FURTHER DRAINANGE THROUGH OUT SHIFT. SITE REMAINS SOFT WITH NO HEMATOMA. PROGRESSING TOWARD PLAN OF CARE. POSSIBLE DISCHARGE IN AM. WILL CONTINUE TO CLOSELY MONITOR.
[2018-11-05 04:21] LABS: CALCIUM 8.6 mg/dL (8.5-10.1); CREATININE 1.5 mg/dL (0.6-1.0); POTASSIUM 3.9 mmol/L (3.5-5.1)
[2018-11-05 04:55] VITALS: BP 118/52
[2018-11-05 07:30] VITALS: BP 114/44
[2018-11-05] MEDS ORDERED: POTASSIUM20 PO (07:55)
[2018-11-05] MEDS ORDERED: CLOPIDOGREL75 MG PO (07:55)
[2018-11-05] MEDS ORDERED: ASPIRIN325 PO (07:55)
[2018-11-05] MEDS ORDERED: TORSEMIDE20 MG PO (07:55)
[2018-11-05] MEDS ORDERED: PACERONE 200 M200 M1 PO (08:09)
[2018-11-05 09:01] VITALS: BP 114/44
--- NOTE | 2018-11-05 09:57 | NUR ---
ASSUMED CARE OF PT AT SHIFT CHANGE. ASSESSMENT CHARTED. MEDS GIVNE PER SEP. PT ALERT AND ORIENTED, VSS, NO C/O PAIN. DENIES CHEST PAIN. SPOUSE AT BEDSIDE. RT GROIN SITE REMAINS DRY AND INTACT WITH NO HEMATOMA, MINIMAL DRAINAGE ON GAUZE, NOT NEW. O2 SATS REMAIN WNL ON ROOM AIR, NO S/SX OF CARD OR RESP DISTRESS NOTED. DC ORDERS ACKNOWLEDGED AND IMPLEMENTED. DC PAPERWORK DISCUSSED WITH PT AND SPOUSE, COMMUNICATES UNDERSTANDING. PT LEFT UNIT AT APPROX 0957 WITH SPOUSE AND ALL BELONGINGS BY VOLUNTEER TRANSPORT.
--- NOTE | 2018-11-05 13:33 | CATHLAB ---
[facility] [address] [place] [address] INVASIVE PROCEDURE REPORT Name: MCCOYSUNSHINE Room #: 208-P DIS IN M.R.#: [id number] ������������� Admission: 11/04/18 ������������� Attend Phys: Alton Bright, Discharge: ��� 11/05/18 ������������� ��� Date of : 31 Date of Service: 11/05/18 1333 �� Report #: [id number] �������� ��������������������������������������������[id number] THIS REPORT FOR: //name// APPROVED REPORT Study performed: 11/03/2018 12:54:12 Patient Details Patient Status: In-Patient Room #: 358 The patient is a 83 year-old female Event Personnel Alton Bright Hand Loom Weaver, Brandon Huddleston RN RN, Amy Menezes RTR, David Owens Alison RT(R)() Monitor, Melvin Ye Monitor Procedures Performed Art Access - R femoral artery* Jett Access - R femoral vein Right and Left Heart Cath w/or w/o Coronarie [id number] [facility] [address] w/wo Plasty Single CIRC 753485 04027 Initial Mod Sed Same Phys/QHP Gr5y 364813 06725 Mod Sed Same Phys/QHP Ea 824447 Hemostasis w/ Mynx Indication Dyspnea Procedure Narrative The Right Groin^ was infiltrated with subcutaneous anesthesia. A PINNACLE 6FR Sheath #[id number] sheath was inserted into the RFA. Coronary angiography was performed using coronary diagnostic catheters. The right coronary system was accessed and visualized with a JR4 catheter. The left coronary system was accessed and visualized with a JL4 catheter. The left ventricle was accessed and visualized with a Pigtail catheter. Left ventriculogram was performed in 30 degree projection. Closure device was deployed with a 6 Fr MYNXGRIP 6/7F #[id number]. Hemostasis was obtained with manual pressure following sheath removal without any complications. The patient tolerated the procedure well and there were no complications associated with the procedure. There was no hematoma. Intraoperative Conscious Sedation Sedation start time: 13:22 Case end Time: 14:44 Fentanyl 25 mcg Versed [address] [address] INVASIVE PROCEDURE REPORT Name: SUNSHINE MCCOY JO Room #: 208-P [facility] IN ..#: [id number] ������������� Admission: 11/04/18 ������������� Attend Phys: Alton Bright, Discharge: ��� 11/05/18 ������������� ��� Date of : 31 Date of Service: 11/05/18 1333 �� Report #: [id number] �������� ��������������������������������������������[id number] Fluoro Time: 5.00 minutes Dose: DAP 6145.10 cGycm2 795 mGy Contrast Type and Amount: Visipaque 110 ml Hemodynamics The right atrial mean pressure is 33 mmHg. The right ventricular pressure is 109/12 mmHg. The pulmonary artery pressure is 106/36 mmHg with a mean of 67 mmHg. The mean pulmonary capillary wedge pressure is 40 mmHg. The aortic pressure is 166/81 mmHg with a mean of 114 mmHg. The left ventricular pressure is 154/13 mmHg with a mean of mmHg. The left ventricular end diastolic pressure is 30 mmHg. The cardiac output using thermo method is 3.45 L/min. The cardiac index using thermo method is 1.97 L/min/m2. PCI Technique Lesion Percutaneous coronary intervention was performed on the mid circumflex artery segment. A LAUNCHER 6FR EBU 3.5 #[id number] Guide Catheter was used to engage the ostium. A Luge Wire .014 x 182CM #[id number] Interventional Guidewire was used to cross the lesion. BALLOON DILATION A Balloon catheter Sprinter OTW 2.5 x 12 #[id number] was inserted and inflated up to 10.00atm for 22seconds. STENT DEPLOYMENT A drug-eluting stent XIENCE TRAE RX 2.75 X 12 #[id number] was inserted and inflated up to 12.00atm for 23seconds. Additional Inflation: 16.00atm for 23seconds. Conclusion #1 successful right heart catheterization with severe elevation pulmonary pressures and pulmonate A wedge pressure see above hemodynamics #2 normal left ventricular size and systolic function lower limits of normal EF 50% with 2-3+ mitral regurgitation #3 successful PTCA stent of the proximal circumflex high-grade lesion to 0% with placement of a 2.75 x12 Trae stent postdilated 2.9 mm healing 0% residual and YEHUDA grade 3 flow this has fairly extensive distribution #4 left main widely patent with calcification giving rise to LAD and circumflex #5 LAD proximal mid vessel stent is patent distal to the stent is moderate stenosis in the 70% range but this is a smaller attenuated vessel extensive the apex small-caliber if one was to intervene it would be at 2 over 2.25 stent will treat this medically [facility] [address] [place] [address] INVASIVE PROCEDURE REPORT Name: SUNSHINE MCCOY Room #: 208-P DIS IN M.R.#: [id number] ������������� Admission: 11/04/18 ������������� Attend Phys: Alton Bright, Discharge: ��� 11/05/18 ������������� ��� Date of : 33 Date of Service: 11/05/18 133 �� Report #: [id number] �������� ��������������������������������������������[id number] #6 dominant right proximal stent has mild restenosis. Just distal to the stent in the mid vessel is an eccentric 60-70% lesion we will follow with a preserved distal right PDA dominant vessel Regulations and plan: Continue aggressive risk factor modification. Dual antiplatelet therapy will follow LAD and RCA lesions for possible intervention later date however continued aggressive medical therapy currently. IV Lasix has been administered and will admit to the CCU for heart failure and marketed elevation pulmonary pressures pulmonate And wedge pressure 33-35 hg mm mean needs aggressive diuresis ��������������������������������������������� <ELECTRONICALLY SIGNED> ���������������������������������������� By: Alton Bright MD, FACC ��������������������������������������������� 11/05/181332 32 32 Alton Bright MD, FACC /INF
--- NOTE | 2018-11-07 10:36 | H ---
[facility] [place] [address] HISTORY AND PHYSICAL Name: SUNSHINE MCCOY JO Room #: 208-P [facility] IN M.R.#: [id number] Admission: 11/04/18 ������������������ Attend Phys: Alton Bright MD, Discharge: 11/05/18 ������������������ Date of : 33 Report #: [id number] THIS REPORT FOR: //name// CC: Bin Bright DATE OF SERVICE: 11/03/2018 HISTORY OF PRESENT ILLNESS: The patient is an 83-year-old female who is admitted for right and left heart catheterization. Progressive anginal type symptoms and dyspnea and shortness of breath. She originally admitted for this catheterization procedure, all found to have marked and severe pulmonary hypertension, predominantly volume overload situation here and diastolic dysfunction, possible ischemic. Had a high-grade proximal circumflex, which was a codominant vessel, which was intervened and dilated here successfully. IV Lasix has been given for a PA pressure 100/40. Pulmonary capillary wedge was 33. Cardiac index was 1.95. Lasix and a Zamarripa catheter. She will be transferred to the CCU in hope to be improving condition. She has a history of prior LAD and diagonal stents and an RCA stent. The diagonal had a kissing stent. This was all done over 10 years ago. Has had some ischemia documented in the inferior lateral wall. This would be consistent with these findings. She has been compliant with medications and they are albuterol, amiodarone 100, Symbicort, [place], Flonase, gabapentin, insulin, levothyroxine, losartan 25, omeprazole, Paxil, Crestor 20, Demadex 20. PAST MEDICAL HISTORY: Positive for coronary artery disease described above, mild ischemic cardiomyopathy, EF is 45-50% range, hypertension, hypercholesterolemia, history of subarachnoid hemorrhage, breast lumpectomy, hemorrhoidectomy, hysterectomy, laparoscopic cholecystectomy. SOCIAL HISTORY: She is , never used tobacco or alcohol. One cup of coffee a day. No regular exercise. ALLERGIES: IODINE AND MORPHINE. She did receive premedication. FAMILY HISTORY: Father with pulmonary embolism and did have a brother with premature coronary disease. REVIEW OF SYSTEMS: Essentially negative except for stated above. PHYSICAL EXAMINATION: GENERAL: She is mildly dyspneic. VITAL SIGNS: Blood pressure 150/76, pulse 80s. HEENT: Eyes reveal xanthelasmas. Pharynx is clear. NECK: Shows preserved upstrokes. There is a trace of JVD here. LUNGS: Prolonged expiratory phase, few crackles in the bases bilaterally. [address] [address] HISTORY AND PHYSICAL Name: SUNSHINE MCCOY Room #: [facility] IN M.R.#: [id number] Admission: 11/04/18 ������������������ Attend Phys: Alton Bright MD, Discharge: 11/05/18 ������������������ Date of : 33 Report #: [id number] CARDIOVASCULAR: S1, S2 distant, prominent second heart sound. ABDOMEN: Soft. EXTREMITIES: Reveal trace of edema. Distal pulses diminished. NEUROLOGIC: Nonfocal. SKIN: Warm and dry without xanthoma or ulcer, mild venous stasis changes. MUSCULOSKELETAL: Generalized arthritic changes. ASSESSMENT: 1. Coronary artery disease with successful percutaneous transluminal coronary angioplasty stent of a high-grade circumflex lesion codominant (probable cause of angina). 2. Significant pulmonary hypertension, predominantly on volume overload, suspect ischemic and/or diastolic dysfunction, Ejection fraction fairly well preserved 45-50% range. 3. Coronary artery disease by history. 4. Hypertension. 5. Hypercholesterolemia. 6. Diabetes. RECOMMENDATIONS AND PLAN: We will admit, aggressively diurese post-stent protocol. Fluid and sodium restriction. Further recommendations. We will initiate insulin, will need moderate sliding scale. Thank you for asking me to assist in the care of this patient. ��������������������������������������������� <ELECTRONICALLY SIGNED> ���������������������������������������� By: Alton Bright MD, FACC ��������������������������������������������� 11/07/18 1036 1414 1538 Alton Bright MD, FACC /nt
== END 2018-11-05 09:57 | disposition home or self-care (01) | DRG 246 ==
LOC: CATH 11:04 → 2N 15:13 → CATH 15:28 → 2N 11-04 08:47 → ENTRNSPT 11-05 09:45 → 2N 11-05 09:57
PROVIDERS: Nurse Practitioner Adult Health; Nurse Practitioner Gerontology; ADMIT Internal Medicine Cardiovascular Disease
PROC: 027034Z Dilation of Coronary Artery, One Artery with Drug-eluting Intraluminal Device, Percutaneous Approach (ICD-10-PCS; principal; 2018-11-03)
PROC: B2111ZZ Fluoroscopy of Multiple Coronary Arteries using Low Osmolar Contrast (ICD-10-PCS; principal; 2018-11-03)
PROC: 4A023N8 Measurement of Cardiac Sampling and Pressure, Bilateral, Percutaneous Approach (ICD-10-PCS; principal; 2018-11-03)
PROC: B2151ZZ Fluoroscopy of Left Heart using Low Osmolar Contrast (ICD-10-PCS; principal; 2018-11-03)
DX: T82.855A Stenosis of coronary artery stent, initial encounter (principal); I50.43 Acute on chronic combined systolic (congestive) and diastolic (congestive) heart failure; I25.10 Atherosclerotic heart disease of native coronary artery without angina pectoris; I27.20 Pulmonary hypertension, unspecified; I11.0 Hypertensive heart disease with heart failure; E78.5 Hyperlipidemia, unspecified; E11.9 Type 2 diabetes mellitus without complications; I25.5 Ischemic cardiomyopathy; I48.0 Paroxysmal atrial fibrillation; Y83.8 Other surgical procedures as the cause of abnormal reaction of the patient, or of later complication, without mention of misadventure at the time of the procedure; Z88.5 Allergy status to narcotic agent; Z88.2 Allergy status to sulfonamides; Z79.899 Other long term (current) drug therapy; Z88.6 Allergy status to analgesic agent; Z91.041 Radiographic dye allergy status; Z90.49 Acquired absence of other specified parts of digestive tract; Z90.710 Acquired absence of both cervix and uterus; Z82.49 Family history of ischemic heart disease and other diseases of the circulatory system; Y92.89 Other specified places as the place of occurrence of the external cause
CPT/HCPCS: 10081

== ENCOUNTER → 2019-03-02 | Outpatient (CLI) | payer OTHER, MEDICARE ==
[~2019-03-02] MED LIST changes: +ASPIRIN325 PO; +CLOPIDOGREL75 MG PO; +CRESTOR20 MG PO; +MIRALAX17 GM PO; +OCUVITE TABLET1 EAC1 PO; +POTASSIUM20 PO; +ZYRTEC10 M5 PO
== END ==
LOC: RAD 10:19
DX: I11.0 Hypertensive heart disease with heart failure (principal); I50.9 Heart failure, unspecified; J90 Pleural effusion, not elsewhere classified; R91.8 Other nonspecific abnormal finding of lung field; I70.0 Atherosclerosis of aorta; R09.89 Other specified symptoms and signs involving the circulatory and respiratory systems; Z88.8 Allergy status to other drugs, medicaments and biological substances

== ENCOUNTER → 2019-04-29 | Outpatient (CLI) | payer OTHER, MEDICARE ==
[~2019-04-29] MED LIST changes: +ZAROXOLYN 5MG TA5 MG PO
== END ==
LOC: RAD 12:58
DX: I70.0 Atherosclerosis of aorta (principal); R06.00 Dyspnea, unspecified

== ENCOUNTER 2019-05-31 15:11 | Emergency (ER) | payer OTHER, MEDICARE ==
[~2019-05-31] VITALS: Ht 154.9 cm; Wt 78.0 kg
--- NOTE | ~2019-05-31 | EMS ---
[address] [address] EMS Patient Care Report Name: SUNSHINE MCCOY Room #: REG [place] Caceres#: [id number] Admission: 05/31/19 Attend Phys: Discharge: Date of : 33 Report #: [id number] THIS REPORT FOR: //name// Report Transmitted: 05/31/2019 15:24 EMS Care Summary [facility] MED-ACT Incident [id number] @ 05/31/2019 14:28 Incident Location [address] [place] [address] Patient SUNSHINE MCCOY Female, 84 Years 1935 Patient Address [address] [place] [address] Patient History Diabetes,Hypertension,Coronary Artery Bypass Graft (CABG),Back Pain (Chronic),Back Surgery,Coronary Artery Disease (CAD), Patient Allergies Iodine, Patient Medications Amiodarone, Rosuvastatin, Lasix, Losartan, Gabapentin, Clopidogrel, Torsemide, Levothyroxine, Chief Complaint Syncope Disposition Transported No Lights/Kenefic Dispatch Reason Falls Transported To [facility] Narrative [address] [address] EMS Patient Care Report Name: SUNSHINE MCCOY Room #: REG [place]#: [id number] Admission: 05/31/19 Attend Phys: Discharge: Date of : 33 Report #: [id number] Called to the above location for a fall. Upon arrival, found this pt laying on the floor on left side. The pts reports she had fallen asleep in the bathroom and when she was walking to the kitchen she asked for a chair because she was dizzy. The pt reports she did not hit her head and that she remembers waking up on the floor. The pt c/o chronic low back pain from a previous injury, left knee and hip pain from laying on that side while on the floor. The pt denies neck or back pain on exam, no neuro deficits noted, and head or facial pain on exam. The pt assisted to her feet where she states she was initially dizzy but that subsided quickly. The pt states the pain in her left knee and hip went away after getting her off the floor. The pt states she has had a persistent, no-productive cough since (5 days) and that she has otherwise been feeling OK. The pt denies medication changes, no N/V, chest pain, dyspnea, or previous episodes of syncope. The pt has a significant medical hx to include CABG x 5 and what she reports as a recent dx of pulmonary HTN. [facility]. The pt reports no new pain upon arrival at ED, she denies dizziness, and states she is feeling better, Initial Vitals @14:59MI Suspected: false @14:48MI Suspected: false @14:48P: 65,R: 16,BP: 134/60,Pain: 0/10,GCS: 15,SpO2: 94,Revised Trauma: 12,IL Suspected: false @14:33P: 50,R: 20,BP: 120/54,Pain: 2/10,GCS: 15,SpO2: 95,Revised Trauma: 12, Assessments @14:35MENTAL:Person Oriented,Time Oriented,Place Oriented,Event Oriented,SKIN:HEENT:Head/Face: No Abnormalities,Neck/Airway: No Abnormalities,LUNG SOUNDS:General: No Abnormalities,ABDOMEN:General: No Abnormalities,PELVIS//GI:No Abnormalities,EXTREMITIES:Left Leg: Other,Capillary Refill: Left Upper: < 2 Sec,Left Arm: No Abnormalities,Right Arm: No Abnormalities,Right Leg: No Abnormalities,PULSE:Radial: 2+ Normal,NEURO:No Abnormalities, Impression Syncope / Fainting Procedures @14:4812-Lead ECGResponse: UnchangedSucceeded@14:4812-Lead ECGResponse: UnchangedSucceeded@14:5912-Lead ECGResponse: UnchangedSucceeded@14:35ALS AssessmentResponse: UnchangedSucceeded [facility] [address] [place] [address] EMS Patient Care Report Name: SUNSHINE MCCOY Room #: REG [facility]#: [id number] Admission: 05/31/19 Attend Phys: Discharge: Date of : 31 Report #: [id number] Timeline 14:27,Call Received 14:27,Psap Call 14:28,Dispatched 14:28,En Route 14:32,On Scene 14:32,At Patient 14:33,BP: 120/54 M,PULSE: 50,RR: 20 R,SPO2: 95 Ox,ETCO2: ,BG: ,PAIN: 2,GCS: 15, 14:35,ALS Assessment,Response: UnchangedSucceeded, 14:48,12-Lead ECG,Response: UnchangedSucceeded, 14:48,BP: / M,PULSE: ,RR: R,SPO2: Ox,ETCO2: ,BG: ,PAIN: ,GCS: , 14:48,12-Lead ECG,Response: UnchangedSucceeded, 14:48,BP: 134/60 M,PULSE: 65,RR: 16 R,SPO2: 94 Ox,ETCO2: ,BG: ,PAIN: 0,GCS: 15, 14:49,Depart Scene 14:59,12-Lead ECG,Response: UnchangedSucceeded, 14:59,BP: / M,PULSE: ,RR: R,SPO2: Ox,ETCO2: ,BG: ,PAIN: ,GCS: , 15:02,At Destination 15:25,Call Closed Disclaimer v1.1 Copyright 2019 [employer] This EMS Care Summary contains data elements from the applicable legal record (which may be displayed differently). It is designed to provide pertinent information for the following purposes: continuity of care, clinical quality, and state data reporting. The complete legal record is available to ED staff and administrators of the receiving hospital in [employer]s Patient Tracker. All data is provided "as is."
[~2019-05-31 15:11] MED LIST changes: -ZAROXOLYN 5MG TA5 MG PO
[2019-05-31] MEDS ORDERED: ZAROXOLYN 5MG TA5 MG PO (15:40)
[2019-05-31 15:42] LABS: ABSOLUTE NEUTROPHILS 11.9 thou/uL (1.4-8.2); BASOPHILS 1.1 % (0.0-2.0); EOSINOPHILS 1.2 % (0.0-3.0); HEMATOCRIT 36.4 % (37.0-47.0); HEMOGLOBIN 12.2 gm/dL (12.0-15.0); LYMPHOCYTES 4.2 % (24.0-44.0); MCH 33.9 pg (26.0-34.0); MCHC 33.4 g/dL (28.0-37.0); MCV 101.3 fL (80.0-100.0); MONOCYTES 6.2 % (1.0-8.0); PLATELET COUNT 267 thou/uL (150-400); POLYS 87.3 % (36.0-66.0); RBC 3.59 mil/uL (4.20-5.00); RDW 18.1 % (10.5-14.5); WBC 13.7 thou/uL (4.0-11.0)
[2019-05-31 15:51] LABS: ANION GAP 5 mmol/L (7-16); BUN 57 mg/dL (7-18); CALCIUM 9.6 mg/dL (8.5-10.1); CHLORIDE 94 mmol/L (98-107); CO2 36 mmol/L (21-32); CREATININE 1.7 mg/dL (0.6-1.0); GLUCOSE 151 mg/dL (74-106); SODIUM 135 mmol/L (136-145)
[2019-05-31 16:00] LABS: MAGNESIUM 2.3 mg/dL (1.8-2.4); TROPONIN-I <0.06 ng/mL (<0.06)
[2019-05-31 16:12] LABS: URINE BILIRUBIN NEGATIVE (Negative); URINE BLOOD NEGATIVE (Negative); URINE CLARITY CLEAR; URINE COLOR YELLOW; URINE GLUCOSE-RANDOM* NEGATIVE (Negative); URINE KETONES NEGATIVE (Negative); URINE LEUKOCYTES-REFLEX NEGATIVE (Negative); URINE NITRITE-REFLEX NEGATIVE (Negative); URINE PROTEIN (DIPSTICK) NEGATIVE (Negative); URINE SPECIFIC GRAVITY 1.015 (1.005-1.035); URINE UROBILINOGEN 0.2 E.U./dl (0.2-1.0)
[2019-05-31 18:27] VITALS: BP 130/52
--- NOTE | 2019-06-01 07:45 | EKG ---
[place] [address] [place] [address] ELECTROCARDIOGRAM REPORT Name: SUNSHINE MCCOY [id number] Admission: 05/31/19 Attend Phys: Discharge: 05/31/19 Date of : 31 Report #: [id number] THIS REPORT FOR: //name// [facility] ED Test Date: 2019-05-31 Test Time: 15:21:35 Pat Name: SUNSHINE MCCOY Department: Room: Gender: F Submarine Worker: dalton : 1935 Requested By: Neal Bearden Order Number: [id number] MD: Denis Brown Measurements Intervals [place] Rate: 63 P: 85 ME: 197 QRS: 16 QRSD: 109 T: 62 QT: 455 QTc: 466 Interpretive Statements Sinus rhythm Poor R wave progression Compared to ECG 11/04/2018 07:29:30 Prolonged QT interval no longer present Electronically Signed On 06-01-2019 7:45:07 BERRY PICKER MACHINE OPERATOR by Denis Brown [email or web address] <ELECTRONICALLY SIGNED> By: Denis Brown MD, [facility] 06/01/19 0745 1521 1521 Denis Brown MD, FACC /EPI
== END 2019-05-31 18:28 | disposition home or self-care (01) ==
LOC: ER 15:11
PROVIDERS: Emergency Medicine
DX: S80.212A Abrasion, left knee, initial encounter (principal); R55 Syncope and collapse; R42 Dizziness and giddiness; I11.0 Hypertensive heart disease with heart failure; I50.9 Heart failure, unspecified; I48.91 Unspecified atrial fibrillation; E78.00 Pure hypercholesterolemia, unspecified; F32.9 Major depressive disorder, single episode, unspecified; Z90.710 Acquired absence of both cervix and uterus; Z90.13 Acquired absence of bilateral breasts and nipples; Z90.49 Acquired absence of other specified parts of digestive tract; Z95.5 Presence of coronary angioplasty implant and graft; Z91.041 Radiographic dye allergy status; Z88.2 Allergy status to sulfonamides; Z88.6 Allergy status to analgesic agent; W18.39XA Other fall on same level, initial encounter; Y93.89 Activity, other specified; Y92.89 Other specified places as the place of occurrence of the external cause; Y99.8 Other external cause status

== ENCOUNTER → 2019-08-25 | Outpatient (CLI) | payer OTHER, MEDICARE ==
[~2019-08-25] MED LIST changes: +ZAROXOLYN 5MG TA5 MG PO
== END ==
LOC: SJCVC 13:33
DX: I21.29 ST elevation (STEMI) myocardial infarction involving other sites (principal); R94.31 Abnormal electrocardiogram [ECG] [EKG]; I45.10 Unspecified right bundle-branch block; I11.0 Hypertensive heart disease with heart failure; I50.9 Heart failure, unspecified; I25.10 Atherosclerotic heart disease of native coronary artery without angina pectoris; E78.00 Pure hypercholesterolemia, unspecified; I34.2 Nonrheumatic mitral (valve) stenosis; E11.9 Type 2 diabetes mellitus without complications; I27.20 Pulmonary hypertension, unspecified; Z90.710 Acquired absence of both cervix and uterus; Z90.49 Acquired absence of other specified parts of digestive tract; Z95.5 Presence of coronary angioplasty implant and graft; Z79.899 Other long term (current) drug therapy

== ENCOUNTER → 2019-08-31 | Outpatient (CLI) | payer OTHER, MEDICARE | LOC: RAD 14:57 | DX: R91.8 Other nonspecific abnormal finding of lung field (principal); I27.20 Pulmonary hypertension, unspecified; I05.9 Rheumatic mitral valve disease, unspecified; I70.0 Atherosclerosis of aorta ==

== ENCOUNTER → 2020-02-24 | Outpatient (CLI) | payer OTHER, MEDICARE | LOC: SJCVCIMAG 10:42 | PROVIDERS: ATTEND Internal Medicine Cardiovascular Disease | DX: I08.1 Rheumatic disorders of both mitral and tricuspid valves (principal); R94.31 Abnormal electrocardiogram [ECG] [EKG]; I45.10 Unspecified right bundle-branch block; I11.9 Hypertensive heart disease without heart failure; I25.10 Atherosclerotic heart disease of native coronary artery without angina pectoris; E78.00 Pure hypercholesterolemia, unspecified; I27.20 Pulmonary hypertension, unspecified; I25.5 Ischemic cardiomyopathy; E11.9 Type 2 diabetes mellitus without complications; I48.0 Paroxysmal atrial fibrillation; Z79.4 Long term (current) use of insulin; Z79.899 Other long term (current) drug therapy ==

== ENCOUNTER 2020-05-31 15:15 | Inpatient (IN) | payer OTHER, MEDICARE ==
[~2020-05-31] VITALS: Ht 154.9 cm; Wt 74.8 kg
[2020-05-31 15:17] VITALS: BP 115/59
[2020-05-31 21:28] VITALS: BP 122/62
[2020-06-01 00:15] VITALS: BP 108/46
[2020-06-01 00:16] LABS: URINE BILIRUBIN NEGATIVE (Negative); URINE BLOOD NEGATIVE (Negative); URINE CLARITY CLEAR; URINE COLOR YELLOW; URINE GLUCOSE-RANDOM* NEGATIVE (Negative); URINE KETONES NEGATIVE (Negative); URINE LEUKOCYTES-REFLEX TRACE (Negative); URINE NITRITE-REFLEX NEGATIVE (Negative); URINE PROTEIN (DIPSTICK) NEGATIVE (Negative)
--- NOTE | 2020-06-01 03:12 | NUR ---
ADMIITED FROM ER UNDER 'S CARE. PT WAS SEEN BY ELASTIC CUTTER INSPECTION MACHINE TENDER AT BEDSIDE. VSS. FSBS STABLE. NO S/S ACUTE DISTRESS NOTED OR REPORTED AT THIS TIME. WILL CONT TO MONITOR FOR ANY CHANGES IN CONDITION.
[2020-06-01 03:47] VITALS: BP 97/47
[2020-06-01] MEDS ORDERED: LEVO-T25 MCG PO (04:56)
[2020-06-01] MEDS ORDERED: AMIODARONE HCL400 MG PO (04:57)
[2020-06-01] MEDS ORDERED: NOVOLOG100 UNIT/M SUBQ (04:58)
[2020-06-01 06:17] LABS: HEMATOCRIT 34.1 % (37.0-47.0); HEMOGLOBIN 11.2 gm/dL (12.0-15.0); MCH 34.7 pg (26.0-34.0); MCHC 32.9 g/dL (28.0-37.0); MCV 105.7 fL (80.0-100.0); RBC 3.23 mil/uL (4.20-5.00); RDW 19.7 % (10.5-14.5); WBC 10.1 thou/uL (4.0-11.0)
[2020-06-01 06:29] LABS: CALCIUM 9.1 mg/dL (8.5-10.1); POTASSIUM 3.7 mmol/L (3.5-5.1)
[2020-06-01 07:38] VITALS: BP 110/49
[2020-06-01 10:07] LABS: INR 1.1; PROTIME 11.6 Seconds (9.3-11.4)
--- NOTE | 2020-06-01 14:33 | NUR ---
PT ADMITTED RELATED TO INCREASING BACK PAIN; SPINAL STENOSIS L3-4; L4-5; DISC VLAD. CM REVIEWED CHART AND SPOKE WITH CARE TEAM. CM ATTEMPTED PT TO PT'S ROOM AND PT DIDN'T ANSWER PHONE. CM MET WITH PT AND SPOUSE AT BEDSIDE THIS DAY. PT IS VERY [place] SO SPOUSE ANSWERED ASSESSMENT QUESTIONS. HE INDICATED THAT THEY RESIDE IN AN APARTMENT. 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 HE INDICATED THAT HE HAD ASSISTED PT A LITTLE WITH ADLS HEAD GOLF PROFESSIONAL. CHART INDICATED THAT PT SLEEPS IN A RECLINER. SPOUSE STATED THAT PT HAD HH IN PAST AND THAT PT HAS BEEN ON 5N OUR ACUTE INPATIENT REHAB TWICE. HE INDICATED THAT HE WOULD BE RECEPTIVE TO HH OR 5N STAY IF INDICATED. CM TO FOLLOW INDICATED WITH DC PLANNING. 5 TO CONSULT.
[2020-06-01 15:18] VITALS: BP 113/53
--- NOTE | 2020-06-01 16:52 | NUR ---
ASSUMED PT CARE THIS AM. PT VSS, COMPLAINS OF MINIMAL PAIN. PT WENT DOWN FOR AN MRI, DID NOT COMPLETE DUE TO INABILITY TO STAY STILL FOR [address] ORDERED FENTANYL TO GIVE TO PT PRIOR TO ANOTHER ATTEMPT FOR MRI. MED GIVEN, MRI COMPLETED. PT MAREK. EXPRESSED CONCERN ABOUT HER HOME MEDS BEING STARTED TODAY, SPOKE TO DR PIMENTEL AND WAS ABLE TO GET THEM FOR HER TODAY. IV PATENT, FLUIDS INFUSING. PT TAKES PILLS WITHOUT COMPLAINT. PT IN CHAIR MOST OF DAY, WALKS WITH WALKER TO BATHROOM. PT CONTINENT OF B&B. CALLS WHEN NEEDED.
[2020-06-01 19:54] VITALS: BP 106/45
[2020-06-02 01:06] LABS: GLYCOHEMOGLOBIN (HGB A1C) 5.7 % (4.8-5.6)
[2020-06-02 06:04] LABS: MCH 35.4 pg (26.0-34.0); MCHC 33.3 g/dL (28.0-37.0); MCV 106.4 fL (80.0-100.0); RBC 3.1 mil/uL (4.20-5.00); RDW 19.7 % (10.5-14.5); WBC 11.6 thou/uL (4.0-11.0)
[2020-06-02 06:32] LABS: CALCIUM 9.1 mg/dL (8.5-10.1); CREATININE 1.9 mg/dL (0.6-1.0); POTASSIUM 3.3 mmol/L (3.5-5.1)
[2020-06-02 08:40] VITALS: BP 102/40
[2020-06-02 09:56] VITALS: BP 102/40
--- NOTE | 2020-06-02 10:05 | NUR ---
CM FOLLOWED UP WITH PT AND SPOUSE THIS AM. THEY CONFIRMED THAT THEY WOULD PREFER TO RETURN HOME OPPOSED TO GO TO 5N. PT SAW PT THSI AM AND INDICATED THAT WOULD BE SAFE LONG SPOUSE IS WITH PT 21/02 AND CONTINUES TO ASSIST PT. THEY INDICATED NO PREFERENCE FOR HH PROVIDERS. CHART INDICATED PT HAS USED [facility] IN THE PAST. THEY WERE CONESNTING OF REFERRAL BEING SENT TO [facility]. REFERRAL SENT. ANTICPATE PT WILL ME MEDICALLY STABLE TO DC HOME THIS DAY. AWAITING RESPONSE FROM HH PROVIDER. PT HAS ALL RECOMMENDED DME.
--- NOTE | 2020-06-02 11:59 | NUR ---
ASSUMED CARES AT 0700. PT AWAKE, ALERT AND ORIENTED*4. C/O MILD LOW BACK PAIN, LIDOCAINE PATCH ADMINISTERED PER ORDER. VITALS REMAIN STABLE. PT C/O SOB WITH EXERTION, SATS > 95% ON RA. LS DIMINISHED. CONTINUES TO HAVE EDEMA IN BLE AND LEFT ARM, ENCOURAGED TO ELEVATE EXTREMITIES. WEEPING NOTED ON LLE, OPTIFORM DRESSING PLACED. PT CONTINUES TO HAVE YEAST INFECTION AROUND PANUS AREA, NYSTATIN POWDER APPLIED, PT REFUSED BATH/SHOWER THIS AM. PT TO DISCHARGE TODAY AFTERNOON. Q1H VISUAL CHECKS. AT THE BEDSIDE. CALL LIGHT WITHIN REACH. FALL PRECAUTIONS IN PLACE
[2020-06-02] MEDS ORDERED: ACETAMINOPHEN325 M1 PO (12:13)
[2020-06-02] MEDS ORDERED: BACLOFEN 10MG T10 MG PO (12:13)
[2020-06-02] MEDS ORDERED: LIDOPATCH1 EACH TRANSDERM (12:13)
[2020-06-02] MEDS ORDERED: HYDROCODON-ACE1 EAC7 PO (12:13)
[2020-06-02] MEDS ORDERED: PREDNISONE 20 M20 M1 PO (12:13)
[2020-06-02 12:42] VITALS: BP 102/40
== END 2020-06-02 14:16 | disposition home health service (06) | DRG 552 ==
LOC: ER 15:15 → 4W 17:12 → EROBS 17:12 → 4W 20:13
PROVIDERS: Internal Medicine; Nurse Practitioner Family; ADMIT Hospitalist; ATTEND Hospitalist
DX: M48.061 Spinal stenosis, lumbar region without neurogenic claudication (principal); I48.20 Chronic atrial fibrillation, unspecified; N17.9 Acute kidney failure, unspecified; I13.0 Hypertensive heart and chronic kidney disease with heart failure and stage 1 through stage 4 chronic kidney disease, or unspecified chronic kidney disease; M54.5 Low back pain; I48.91 Unspecified atrial fibrillation; I50.9 Heart failure, unspecified; E11.42 Type 2 diabetes mellitus with diabetic polyneuropathy; E78.00 Pure hypercholesterolemia, unspecified; E78.5 Hyperlipidemia, unspecified; G89.29 Other chronic pain; I25.10 Atherosclerotic heart disease of native coronary artery without angina pectoris; N32.81 Overactive bladder; K59.00 Constipation, unspecified; N18.9 Chronic kidney disease, unspecified; F32.9 Major depressive disorder, single episode, unspecified; M51.36 Other intervertebral disc degeneration, lumbar region; E66.01 Morbid (severe) obesity due to excess calories; Z68.31 Body mass index [BMI] 31.0-31.9, adult; Z90.710 Acquired absence of both cervix and uterus; Z85.05 Personal history of malignant neoplasm of liver; Z90.49 Acquired absence of other specified parts of digestive tract; Z79.4 Long term (current) use of insulin; Z79.01 Long term (current) use of anticoagulants; Z79.899 Other long term (current) drug therapy; Z88.5 Allergy status to narcotic agent; Z88.2 Allergy status to sulfonamides; Z88.8 Allergy status to other drugs, medicaments and biological substances; Z91.041 Radiographic dye allergy status; Z95.5 Presence of coronary angioplasty implant and graft
CPT/HCPCS: 10040

== ENCOUNTER → 2020-06-10 | Outpatient (CLI) | payer OTHER, MEDICARE ==
[~2020-06-10] VITALS: Ht 154.9 cm; Wt 74.8 kg
[~2020-06-10] MED LIST changes: +ACETAMINOPHEN325 M1 PO; +AMIODARONE HCL400 MG PO; +BACLOFEN 10MG T10 MG PO; +HYDROCODON-ACE1 EAC7 PO; +LEVO-T25 MCG PO; +LIDOPATCH1 EACH TRANSDERM; +NOVOLOG100 UNIT/M SUBQ; +PREDNISONE 20 M20 M1 PO
[2020-06-10 11:36] VITALS: BP 121/56
--- NOTE | 2020-06-10 12:14 | NUR ---
Pain Clinic Assessment: 1. 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 Height: 5 ft. 1 in. 154.9 cm. Weight: 165.0 lb. oz. 74.844 kg. Patient's BMI: 31.2 3. Vital Signs: BP: 121/56 Pulse: 77 Resp: 16 Temp: 02 Sat: 97 ECG Mon: 4. Pain Intensity: 8 5. Fall Risk: Dizziness: N Needs help standing or walking: Y Fallen in the last 3 months: Y Fall risk comments: 6. Patient on Blood Thinner: None 7. History of Hypertension: Y 8. Opioid Therapy greater than 6 weeks: N Opiate Contract Signed: 9. Risk Assessment Tool Provided: 10. Functional Assessment Tool: 11. Recreational Drug Use: Never Drug Type: Tobacco Use: Never Smoker Tobacco Type: Amount or Packs/day: How Many Years: Alcohol Use: No Frequency: Quant:
== END ==
LOC: PAIN 06:53
PROVIDERS: ATTEND Anesthesiology Pain Medicine
DX: M54.16 Radiculopathy, lumbar region (principal); G89.29 Other chronic pain

== ENCOUNTER 2020-07-01 11:55 | Inpatient (IN) | payer OTHER, MEDICARE ==
[~2020-07-01] VITALS: Ht 154.9 cm; Wt 74.4 kg
[2020-07-01 11:58] VITALS: BP 144/127
[2020-07-01 16:43] LABS: HEMOGLOBIN 9.7 gm/dL (12.0-15.0); MCH 34.5 pg (26.0-34.0); MCHC 33.6 g/dL (28.0-37.0); MCV 102.7 fL (80.0-100.0); RBC 2.83 mil/uL (4.20-5.00); RDW 19.9 % (10.5-14.5)
[2020-07-01 16:48] VITALS: BP 92/65
[2020-07-01 16:51] LABS: CALCIUM 8.3 mg/dL (8.5-10.1); CREATININE 2.3 mg/dL (0.6-1.0); POTASSIUM 4.3 mmol/L (3.5-5.1)
[2020-07-01 16:55] LABS: APTT 26.5 Seconds (24.5-32.8); INR 1.1; PROTIME 11.4 Seconds (9.3-11.4)
[2020-07-01 16:57] LABS: ALBUMIN 1.9 g/dL (3.4-5.0); MAGNESIUM 2.5 mg/dL (1.8-2.4); TOTAL BILIRUBIN 1.1 mg/dL (0.2-1.0); TOTAL PROTEIN 5.4 g/dL (6.4-8.2)
--- NOTE | 2020-07-01 17:02 | NUR ---
ATTEMTPTED TO CALL REPORT, WAS ADVISED THEY "COUYLDNT TAKE THE PT. BECAUSE THEY JUST GOT THREE NEW PT.S AND THERE IS ONLY 2 NURSES" HAD LUKAS RN TALK TO EZEQUIEL PRIEST AND SHE TOLD THEM WE WILL GIVE THEM 30 MINUTES TO SETTLE THE PT.S AND THEN CB FOR REPORT
[2020-07-01 18:11] VITALS: BP 96/57
[2020-07-01 18:45] VITALS: BP 103/54
[2020-07-02 02:31] VITALS: BP 107/51
--- NOTE | 2020-07-02 04:09 | NUR ---
PT WAS ADMITTED TO THE FLOOR IN A STABLE CONDITION.ADMISSION HX,AND ASSESSMENT PARTIALLY COMPLETED DUE TO PT'S COGNITIVE IMPAIRMENT. PT HAS A DECUB ON HER SACRUM.CRYSTAL CARE DONE,ZGUARD APPLIED.PT ALSO HAS BLE ULCER,DRSG CHANGES DONE.SLING TO L ARM TO IMMOBILIZE IT.PT REPOSITIONED WHILE IN BED.PT RESTING ON HER BED AT THIS TIME.CALL LIGHT WITHIN REACH.
[2020-07-02 07:31] VITALS: BP 112/52
[2020-07-02 14:01] LABS: ABSOLUTE NEUTROPHILS 13.1 thou/uL (1.4-8.2); BASOPHILS 0.4 % (0.0-2.0); EOSINOPHILS 0.1 % (0.0-3.0); HEMATOCRIT 29.1 % (37.0-47.0); HEMOGLOBIN 9.7 gm/dL (12.0-15.0); LYMPHOCYTES 2.3 % (24.0-44.0); MCH 34.5 pg (26.0-34.0); MCHC 33.2 g/dL (28.0-37.0); MCV 103.9 fL (80.0-100.0); MONOCYTES 1.2 % (1.0-8.0); PLATELET COUNT 204 thou/uL (150-400); RDW 19.5 % (10.5-14.5); WBC 13.6 thou/uL (4.0-11.0)
[2020-07-02 14:17] LABS: ALBUMIN 1.8 g/dL (3.4-5.0); CALCIUM 8.5 mg/dL (8.5-10.1); CREATININE 2.2 mg/dL (0.6-1.0); MAGNESIUM 2.7 mg/dL (1.8-2.4); POTASSIUM 3.6 mmol/L (3.5-5.1); TOTAL BILIRUBIN 0.9 mg/dL (0.2-1.0); TOTAL PROTEIN 5.2 g/dL (6.4-8.2)
[2020-07-02 15:47] VITALS: BP 81/56
[2020-07-02 16:05] LABS: ANISOCYTOSIS 2+; MACROCYTES 1+
--- NOTE | 2020-07-02 19:35 | NUR ---
PT IS AOX2, CONFUSED, UP TO BSC WITH MAX ASSIST OF 3. PT APPETITE IS POOR, WILL EAT WITH ENCOURAGEMENT. S/S INSULIN GIVEN NEEDED WITH MEALS. TURNED Q2 HRS WHILE IN BED. BM TODAY, CALL LIGHT IN REACH, WILL CONTINUE TO MONITOR.
[2020-07-02 20:52] VITALS: BP 90/33
--- NOTE | 2020-07-03 04:55 | NUR ---
PATIENT ALERT TO SELF ONLY AND DOES NOT ALWAYS RESPOND TO THIS NURSE. NS INFUSING PER ORDER. BS MONITORED. VERY [place]. PATIENT TRANSFERRED FROM CHAIR TO BED AT SHIFT CHANGE WITH TWO HEAVY ASSIST. PATIENT INCONTINENT OF BM. BILATERAL LOWER LEGS WRAPPED WITH KERLIX. LEFT ARM IN SLING, HOWEVER, PATIENT REMOVES HER ARM AND PULLS SLING AWAY - NO ON AT TIME OF NOTE. BUTTOCKS BREAKDOWN, CREAM APPLIED. RECEIVED TYLENOL FOR PAIN. WILL MONITOR.
[2020-07-03 05:13] LABS: HEMATOCRIT 28.7 % (37.0-47.0); HEMOGLOBIN 9.6 gm/dL (12.0-15.0); MCH 34.6 pg (26.0-34.0); MCHC 33.4 g/dL (28.0-37.0); MCV 103.9 fL (80.0-100.0); PLATELET COUNT 158 thou/uL (150-400); RBC 2.76 mil/uL (4.20-5.00); RDW 19.6 % (10.5-14.5); WBC 11.9 thou/uL (4.0-11.0)
[2020-07-03 05:28] LABS: ALBUMIN 1.8 g/dL (3.4-5.0); CREATININE 2.7 mg/dL (0.6-1.0); MAGNESIUM 2.6 mg/dL (1.8-2.4); POTASSIUM 3.9 mmol/L (3.5-5.1)
[2020-07-03 07:51] VITALS: BP 86/40
--- NOTE | 2020-07-03 10:52 | NUR ---
Assumed care of pt at 0700. Pt drowsy and blood pressure 86/40 this am. Provider notified. Attempted to feed pt. Unable to feed due to pt being sleepy and drowsy. Family at bedside. IVF infusing. Max assist. Call [facility] within reach. Fall precautions in place. Will continue to monitor.
[2020-07-03 13:12] LABS: ABSOLUTE NEUTROPHILS 11.2 thou/uL (1.4-8.2); ANISOCYTOSIS 2+; METAMYELOCYTES 1 %; NUCLEATED RBCS 1 /100WBC
[2020-07-03 13:13] LABS: MACROCYTES 1+
[2020-07-03 15:45] VITALS: BP 97/54
[2020-07-03 19:10] VITALS: BP 96/59
[2020-07-04 04:11] VITALS: BP 127/93
--- NOTE | 2020-07-04 04:33 | NUR ---
PATIENT ORIENTED AT TIMES TO HER NAME. MOANING OFF AND ON. GIVEN TYLENOL WITH GOOD RESULTS. IVFUSING W/O COMPLICATION. BM X3 DURING THE NIGHT. MEDS CRUSHED AND MIXED WITH APPLESAUCE. PATIENT IS COOPERATIVE WITH CARE. BS MONITORED PER ORDER. WILL HAVE CHEST XRAY TODAY FOR DYSPNEA/HYPOTENSION. WILL MONITOR.
[2020-07-04 05:52] LABS: HEMATOCRIT 30.5 % (37.0-47.0); HEMOGLOBIN 9.8 gm/dL (12.0-15.0); MCH 33.6 pg (26.0-34.0); MCHC 32.1 g/dL (28.0-37.0); MCV 104.7 fL (80.0-100.0); RBC 2.91 mil/uL (4.20-5.00); RDW 19.8 % (10.5-14.5); WBC 21.8 thou/uL (4.0-11.0)
[2020-07-04 06:09] LABS: CALCIUM 8.1 mg/dL (8.5-10.1); MAGNESIUM 2.6 mg/dL (1.8-2.4); POTASSIUM 4.4 mmol/L (3.5-5.1)
[2020-07-04 07:30] VITALS: BP 118/80
--- NOTE | 2020-07-04 08:51 | NUR ---
WOUND CONSULT; A DTI TO THE LEFT HEEL IS UNSTABLE. THE LEFT HIP HAS A LARGE BRUISE/DTI? STABLE.LEFT LAT KNEE DTI'S STABLE. LLE DTI'S STABLE. LLE UNSTABLE DTI. RIGHT ALVAREZ/KNEE DTI. AND SACRUM/BUTTOCK UNSTABLE. PICS TAKEN RECOMMENDATIONS; -[address] DELGADO FOR WOUND CARE. -2 ADD A LOW AIR LOSS PUMP FOR PRESSURE REDISTRIBUTION. -3 TURN Q2H DISCUSSED WITH EZEQUIEL
--- NOTE | 2020-07-04 11:30 | NUR ---
FAXED REFERRAL TO HOSPICE HOUSE SPOKE WITH KALIN IN ADM SHE RECEIVECD REFERRAL AND WILL REVIEW. DP TO FOLLOW.
--- NOTE | 2020-07-04 12:30 | NUR ---
Assumed care of pt at 0700. Pt drowsy and lethargic. Incontinent. WBC elevated. Provider aware. IVF and IV antibiotics infusing. video games storywriter will come evaluate pt today. Family at bedside. Q2h turn. Fall precautions in place. Will continue to monitor.
--- NOTE | 2020-07-04 14:59 | NUR ---
THIS COCKTAIL LOUNGE MANAGER WAS LEFT A MESSGAE ABOUT THE THE PATIENT'S WANTING TO HAVE PRAYER FOR HIS . THIS COCKTAIL LOUNGE MANAGER ARRIVED AND THE HAD LEFT. THIS COCKTAIL LOUNGE MANAGER HAD PRAYER FOR THE PATIENT. THIS COCKTAIL LOUNGE MANAGER WILL FOLLOW UP WITH THE COCKTAIL LOUNGE MANAGER WHO GENERALLY SERVES THAT UNIT.
[2020-07-04 15:11] VITALS: BP 118/80
--- NOTE | 2020-07-04 17:04 | NUR ---
PT DISCHARGING TODAY TO HOSPICE HOUSE FAXED DC ORDERS/SUMMARY RECEIVED CONFIRMATION AND ARRANGED TRANSPORTATION BY AMBULANCE ([facility]) FOR 1600 TODAY. FAMILY NOTIFIED BY CARI (ROQUE).
--- NOTE | 2020-07-04 17:47 | NUR ---
Sample Maker Original visited with the pt/spouse at bedside thsi am. Pt was unable to participate in conversation;moaning most of the visit. Nursing advised as pt appeared to be uncomfortable. Pt admitted for SNF at [facility] after falling with resulting shld fx. Non surgical fx per ortho. PT with encephalopathy and overall decline in her medical condition. Pt's spouse reports the care team recommendations for hospice care/dnr. He is agreeable to DNR and outside the hospital form signed by the spouse and the attending. The pt's spouse notes limited support at home and he is exhausted from caregiving. He does not feel home with hospice or ltc with hospice is an option. Case reviewed with the care team. Hospice House referral discussed with the attending and pt's spouse. Both in agreement due to pt's declining situtation. Referral faxed by the ri program services planner. Their onsite RN Rosalind was here around 1230 and they have accepted the pt and will have a bed this afternoon. Spouse aware and agreeable. Care team updated and [facility] transport arranged for 4pm by the dc program services planner. Spouse updated at bedside and he left to go ahead of the pt to the hospice house and do paperwork. Nursing called report. Support provided and DNR sent with the pt. [employer] updated as she had called earlier this morning to check on the pt as well as the liason from [facility] SNF.
== END 2020-07-04 16:38 | disposition hospice, inpatient (51) | DRG 562 ==
LOC: ER 11:55 → 4S 16:47 → EROBS 16:47 → 4S 18:20
PROVIDERS: ADMIT Internal Medicine; ATTEND Internal Medicine
DX: S42.292A Other displaced fracture of upper end of left humerus, initial encounter for closed fracture (principal); G93.41 Metabolic encephalopathy; I48.20 Chronic atrial fibrillation, unspecified; G89.4 Chronic pain syndrome; I25.10 Atherosclerotic heart disease of native coronary artery without angina pectoris; I11.0 Hypertensive heart disease with heart failure; E11.42 Type 2 diabetes mellitus with diabetic polyneuropathy; F32.9 Major depressive disorder, single episode, unspecified; E66.01 Morbid (severe) obesity due to excess calories; M48.061 Spinal stenosis, lumbar region without neurogenic claudication; I50.9 Heart failure, unspecified; M54.89 Other dorsalgia; Z51.5 Encounter for palliative care; Z20.828 Contact with and (suspected) exposure to other viral communicable diseases; E78.5 Hyperlipidemia, unspecified; Z95.5 Presence of coronary angioplasty implant and graft; Z90.49 Acquired absence of other specified parts of digestive tract; Z90.710 Acquired absence of both cervix and uterus; Z79.891 Long term (current) use of opiate analgesic; Z88.5 Allergy status to narcotic agent; Z88.2 Allergy status to sulfonamides; Z88.8 Allergy status to other drugs, medicaments and biological substances; Z91.041 Radiographic dye allergy status; Z79.899 Other long term (current) drug therapy; Z68.31 Body mass index [BMI] 31.0-31.9, adult
CPT/HCPCS: 10195